=== PATIENT | male | born 1950 | race Caucasian/White ===

== ENCOUNTER 2016-09-19 16:41 | Inpatient (IN) | payer OTHER, MEDICARE ==
[2016-09-19] MEDS ORDERED: IPRATROPIUM/ALBUTEROL (0.5MG/3MG) NEB INH ONE (18:26)
--- NOTE | 2016-09-19 18:31 | Emergency Department Record ---
History of Present Illness - General Chief complaint: Nausea, Vomiting, Diarrhea Stated complaint: NOT FEELING WELL,NAUSEA,WEAK Time Seen by Provider: 09/19/16 18:24 Source: Patient Mode of Arrival: Ambulatory Limitations: No limitations - History of Present Illness Initial comments: The patient is here due to not feeling well today. He developed nausea and vomiting about 5 hours ago and did vomit 2 times. He has had an increased cough recently with sputum. He denies any QUINTANILLA, neck pain, CP, AP or dysuria. The patient has a long hx of COPD and is on inhallers at home. MD complaint: Nausea, Vomiting Onset/Timin -: Hour(s) Description of Vomiting: Watery Associated Abdominal Pain: Yes Location: Diffuse Radiation: None Quality: Cramping Consistency: Constant Improves with: None Worsens with: Vomiting Associated Symptoms: Nausea/vomiting - Related Data Home Medications Medication Instructions Recorded Confirmed Last Taken Albuterol Sulfate [Proair 90 mcg IH ASDIR 01/17/15 09/19/16 08/06/15 Respiclick] Aspirin [Aspirin EC] 81 mg PO DAILY 01/17/15 09/19/16 08/06/15 Ipratropium/Albuterol [Duoneb] 3 ml IH DAILY 09/19/16 09/19/16 Unknown Allergies Allergy/AdvReac Type Severity Reaction Status Date / Time No Known Drug Allergies Allergy Unverified 09/05/16 14:37 Travel Screening - Travel/Exposure Within Last 30 Days Have you traveled within the last 30 days?: No Review of Systems Constitutional: Reports: Chills, Fever, Malaise Eyes: Denies: Eye discharge ENT: Reports: Congestion Respiratory: Reports: Cough. Denies: Dyspnea Cardiovascular: Denies: Arrhythmia, Chest pain Endocrine: Reports: Fatigue Gastrointestinal: Reports: Nausea, Vomiting. Denies: Abdominal pain Genitourinary: Denies: Dysuria Musculoskeletal: Denies: Arthralgia Past Medical History - SOCIAL HISTORY Smoking Status: Former smoker Alcohol Use: None Drug Use Detail:: Marijuana - RESPIRATORY Hx Respiratory Disorders: Yes Hx COPD: Yes Comment:: emphysema; home O2 @2L n/c - CARDIOVASCULAR Hx Cardio Disorders: Yes Hx Cardiac Cath: Yes Hx Hypertension: Yes - NEURO Hx Neuro Disorders: No - GI Hx GI Disorders: No - Hx Genitourinary Disorders: Yes Hx Bladder Problem: Yes - ENDOCRINE Hx Endocrine Disorders: No - MUSCULOSKELETAL Hx Musculoskeletal Disorders: Yes - PSYCH Hx Psych Problems: No - HEMATOLOGY/ONCOLOGY Hx Hematology/Oncology Disorders: No Family Medical History Any Significant Family History?: Yes Hx Diabetes: Mother Hx Heart Disease: Mother Physical Exam - General General Appearance: Alert, Oriented x3, Cooperative, No acute distress - Head Head exam: Atraumatic, Normocephalic, Normal inspection - Eye Eye exam: Normal appearance, PERRL, EOMI - ENT ENT exam: Normal exam, Mucous membranes moist, Normal external ear exam, Normal orophraynx Throat exam: Normal inspection. negative: Tonsillar erythema, Tonsillar exudate - Neck Neck exam: Normal inspection, Full ROM. negative: Tenderness - Respiratory Respiratory exam: Normal lung sounds bilaterally. negative: Respiratory distress - Cardiovascular Cardiovascular Exam: Regular rate, Normal rhythm, Normal heart sounds - GI/Abdominal GI/Abdominal exam: Soft, Normal bowel sounds. negative: Tenderness - Extremities Extremities exam: Normal inspection, Full ROM, Normal capillary refill. negative: Tenderness Course Vital Signs 09/19/16 18:18 Temperature 101.0 F H Pulse Rate 102 H Respiratory 22 Rate Blood Pressure 136/77 Pulse Ox 96 - Reevaluation(s) Reevaluation #1: The patient is doing better. He is resting comfortably and on his way to xray. His care will be turned over to Dr. Wray at 19:00 due to shift change. 09/19/16 19:02 Medical Decision Making - Lab Data Result diagrams: 09/19/16 18:34 09/19/16 18:34 Disposition Forms: Patient Portal Access
[2016-09-19] MEDS ORDERED: METHYLPREDNISOLONE PF 125MG/VIAL IVP ONE (18:34)
[2016-09-19] MEDS ORDERED: ACETAMINOPHEN 325 MG TAB PO ONE (18:34)
[2016-09-19 19:04] LABS: HEMATOCRIT 39.1 % (42.0-52.0); HEMOGLOBIN 12.9 gm/dl (14.0-18.0); MEAN PLATELET VOLUME 10.9 fl (7.4-10.4); PLATELET COUNT 293 K/uL (130-400); RED BLOOD COUNT 4.16 M/uL (4.40-5.70); RED CELL DISTRIBUTION WIDTH 13.3 % (11.5-14.5); WHITE BLOOD COUNT W/O DIFF 19.1 K/uL (4.2-12.2)
[2016-09-19 19:13] LABS: PLATELET ESTIMATE NORMAL (NORMAL)
[2016-09-19 19:16] LABS: ANION GAP 9.1 (7-16); BLOOD UREA NITROGEN 15 mg/dL (9-20); CARBON DIOXIDE 27.9 mmol/L (22-30); CREATININE 0.7 mg/dL (0.66-1.25); EST GLOMERULAR FILTRATION RATE > 60 ml/min; GLUCOSE,RANDOM 92 mg/dL (70-110)
[2016-09-19] MEDS ORDERED: CEFTRIAXONE SODIUM 1 GM in 0.9 % SODIUM CHLORIDE 100ML 100 ML IVPB ONE (20:47)
[2016-09-19] MEDS ORDERED: AZITHROMYCIN 500 MG TABLET PO ONE (20:47)
[2016-09-19] MEDS ORDERED: HYDROMORPHONE HCL 1 MG/ML CPJ IVP ONE (21:22)
--- NOTE | 2016-09-19 21:33 | Emergency Department Record ---
History of Present Illness - General Chief complaint: Nausea, Vomiting, Diarrhea Stated complaint: NOT FEELING WELL,NAUSEA,WEAK Time Seen by Provider: 09/19/16 18:24 Source: Patient Mode of Arrival: Ambulatory Limitations: No limitations - History of Present Illness MD complaint: Nausea, Vomiting Onset/Timin -: Hour(s) Description of Vomiting: Watery Associated Abdominal Pain: Yes Location: Diffuse Radiation: None Quality: Cramping Consistency: Constant Improves with: None Worsens with: Vomiting Associated Symptoms: Nausea/vomiting - Related Data Home Medications Medication Instructions Recorded Confirmed Last Taken Albuterol Sulfate [Proair 90 mcg IH ASDIR 01/17/15 09/19/16 08/06/15 Respiclick] Aspirin [Aspirin EC] 81 mg PO DAILY 01/17/15 09/19/16 08/06/15 Ipratropium/Albuterol [Duoneb] 3 ml IH DAILY 09/19/16 09/19/16 Unknown Allergies Allergy/AdvReac Type Severity Reaction Status Date / Time No Known Drug Allergies Allergy Unverified 09/05/16 14:37 Travel Screening - Travel/Exposure Within Last 30 Days Have you traveled within the last 30 days?: No Review of Systems Constitutional: Reports: Chills, Fever, Malaise Eyes: Denies: Eye discharge ENT: Reports: Congestion Respiratory: Reports: Cough. Denies: Dyspnea Cardiovascular: Denies: Arrhythmia, Chest pain Endocrine: Reports: Fatigue Gastrointestinal: Reports: Nausea, Vomiting. Denies: Abdominal pain Genitourinary: Denies: Dysuria Musculoskeletal: Denies: Arthralgia Past Medical History - SOCIAL HISTORY Smoking Status: Former smoker Alcohol Use: None Drug Use Detail:: Marijuana - RESPIRATORY Hx Respiratory Disorders: Yes Hx COPD: Yes Comment:: emphysema; home O2 @2L n/c - CARDIOVASCULAR Hx Cardio Disorders: Yes Hx Cardiac Cath: Yes Hx Hypertension: Yes - NEURO Hx Neuro Disorders: No - GI Hx GI Disorders: No - Hx Genitourinary Disorders: Yes Hx Bladder Problem: Yes - ENDOCRINE Hx Endocrine Disorders: No - MUSCULOSKELETAL Hx Musculoskeletal Disorders: Yes - PSYCH Hx Psych Problems: No - HEMATOLOGY/ONCOLOGY Hx Hematology/Oncology Disorders: No Family Medical History Any Significant Family History?: Yes Hx Diabetes: Mother Hx Heart Disease: Mother Physical Exam - General Limitations: No limitations Course Vital Signs 09/19/16 09/19/16 09/19/16 18:18 18:39 20:18 Temperature 101.0 F H 99.0 F Pulse Rate 102 H 104 H Pulse Rate [ 107 H Pulse Ox Probe] Respiratory 22 18 22 Rate Blood Pressure 136/77 Blood Pressure 133/80 [Right Arm] Pulse Ox 96 96 97 Medical Decision Making - Lab Data Result diagrams: 09/19/16 18:30 09/19/16 18:30 Lab Results 09/19/16 09/19/16 Range/Units 18:30 18:30 WBC 19.1 H (4.2-12.2) K/uL RBC 4.16 L (4.40-5.70) M/uL Hgb 12.9 L (14.0-18.0) gm/dl Hct 39.1 L (42.0-52.0) % MCV 94.0 (81-97) fl MCH 31.0 (27-33) pg MCHC 33.0 (32-36) g/dl RDW 13.3 (11.5-14.5) % Plt Count 293 (130-400) K/uL MPV 10.9 H (7.4-10.4) fl Neutrophils % 87.0 H (47-80) % Band Neutrophils % 4.0 (0-5) % Eosinophils % Not Reportable Basophils % Not Reportable Lymphocytes 4.0 L (16-45) % Monocytes 5.0 (0-9) % Platelet Estimate Normal (NORMAL) RBC Morphology Normal Sodium 134 L (136-145) mmol/L Potassium 3.6 (3.5-5.1) mmol/L Chloride 97 L (98-107) mmol/L Carbon Dioxide 27.9 (22-30) mmol/L Anion Gap 9.1 (7-16) BUN 15 (9-20) mg/dL Creatinine 0.7 (0.66-1.25) mg/dL Estimated GFR > 60 ml/min Random Glucose 92 (70-110) mg/dL Calcium 8.8 (8.5-10.1) mg/dL Disposition Disposition: Admit Clinical Impression: Pneumonia Qualifiers: Pneumonia type: due to unspecified organism Laterality: right Lung location: middle lobe of lung Qualified Code(s): J18.1 - Lobar pneumonia, unspecified organism COPD (chronic obstructive pulmonary disease) Qualifiers: COPD type: COPD with acute lower respiratory infection Qualified Code(s): J44.0 - Chronic obstructive pulmonary disease with acute lower respiratory infection Vomiting Qualifiers: Vomiting type: unspecified Vomiting Intractability: non-intractable Nausea presence: with nausea Qualified Code(s): R11.2 - Nausea with vomiting, unspecified Disposition: Still a Patient at [facility] Decision to Admit: Admit from ER Decision to Admit Date: 09/19/16 Decision to Admit Time: 21:25 Forms: Patient Portal Access
[2016-09-19] MEDS ORDERED: LOSARTAN POTASSIUM 100 MG TABLET PO SCH (22:47)
[2016-09-19] MEDS ORDERED: PROMETHAZINE HCL 25 MG/ML VIAL IVP PRN (22:47)
[2016-09-19] MEDS ORDERED: ALBUTEROL SULFATE (0.083%) 2.5 MG/3 ML NEB INH PRN (22:47)
[2016-09-19] MEDS ORDERED: ACETAMINOPHEN 500 MG TABLET PO PRN (22:47)
[2016-09-19] MEDS ORDERED: ATORVASTATIN 20 MG TABLET PO SCH (22:47)
[2016-09-19] MEDS ORDERED: RANITIDINE HCL 150 MG TABLET PO PRN (22:47)
[2016-09-19] MEDS ORDERED: BUSPIRONE 5 MG TABLET PO SCH (22:47)
[2016-09-19] MEDS ORDERED: PNEUM 23-VAL ADULT IM ONE (23:02)
[2016-09-19] MEDS ORDERED: FLU VAC QS 2016-17 (INPT, 3YR+) 60MCG/0.5ML IM ONE (23:02)
[2016-09-19] MEDS: IPRATROPIUM/ALBUTEROL (0.5MG/3MG) NEB INH PRN (23:08)
[2016-09-19] MEDS: TRAZODONE 50 MG TABLET PO SCH (23:13)
[2016-09-19] MEDS: HYDROCODONE/APAP 7.5/325MG TABLET PO PRN (23:13)
[2016-09-20] MEDS: IPRATROPIUM/ALBUTEROL (0.5MG/3MG) NEB INH PRN (06:05)
[2016-09-20] MEDS: PANTOPRAZOLE SODIUM 40 MG TABLET PO SCH (06:37)
[2016-09-20] MEDS: HYDROCODONE/APAP 7.5/325MG TABLET PO PRN ×3 (06:39→21:24)
[2016-09-20 07:02] LABS: HEMATOCRIT 39.6 % (42.0-52.0); MEAN CELL VOLUME 93.6 fl (81-97); MEAN CORPUSCULAR HEMOGLOBIN 30.7 pg (27-33); MEAN CORPUSCULAR HGB CONC 32.8 g/dl (32-36); PLATELET COUNT 300 K/uL (130-400); RED BLOOD COUNT 4.23 M/uL (4.40-5.70); RED CELL DISTRIBUTION WIDTH 13.7 % (11.5-14.5)
[2016-09-20] MEDS: IPRATROPIUM/ALBUTEROL (0.5MG/3MG) NEB INH SCH ×4 (09:55→21:53)
[2016-09-20] MEDS ORDERED: BUDESONIDE 0.5 MG/2 ML INH SCH (10:00)
[2016-09-20] MEDS ORDERED: AZITHROMYCIN 500 MG TABLET PO SCH (10:00)
[2016-09-20] MEDS ORDERED: TIOTROPIUM BROMIDE 5 CAPSULES INH SCH (10:00)
--- NOTE | 2016-09-20 10:18 | History & Physical ---
History of Present Illness - Date of Service Date of Service for History & Physical: 09/20/16 - History of Present Illness Admitting Diagnosis: rml pneumonia, copd, vomiting History of Present Illness: 66yo male with CC of n/v, cough and not feeling well. He has history of severe COPD emphysema with home O2 use at 2L, hypertension, anxiety, osteoporosis, pre- diabetes. Patient states over the past week he had been having some increasing shortness of breath from baseline. [place] like his chest was getting tighter and having a harder time getting a breath in. He was not having increased cough or sputum production. 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 He says his symptoms continued to progress over the week and then yesterday had nausea with 3 episodes of emesis so decided to come to the ED. While in the ED, patient was febrile with temp of 101, HR of 102, and O2 sat of 96% on 2L. His WBC count was elevated at 19.1 and CXR showed new RML infiltrate along with chronic emphysematous changes. CMP showed slightly low sodium at 134 and Cl of 97. Blood cultures were obtained and he was started on azithromycin and rocephin for suspected CAP. 09/20/16- Patient states he is feeling better compared to yesterday. He says he is not feeling as short of breath but is not back to his baseline. He says his nausea has completely resolved and thinks he just ate something that didn't agree with him, because he was not having any problems prior to yesterday. He never had abdominal pain and no changes in his stool. He does continue to report some pain in the right middle chest where the infiltrate is. He denies fever, chills, weakness or fatigue. PCP: [facility]. Travel Screening - Travel/Exposure Within Last 30 Days Have you traveled within the last 30 days?: No Review of Systems Constitutional: Reports: Chills, Fever, Malaise Eyes: Denies: Eye discharge ENT: Reports: Congestion Respiratory: Reports: Cough. Denies: Dyspnea Cardiovascular: Denies: Arrhythmia, Chest pain Endocrine: Reports: Fatigue Gastrointestinal: Reports: Nausea, Vomiting. Denies: Abdominal pain Genitourinary: Denies: Dysuria Musculoskeletal: Denies: Arthralgia Past Medical History - SOCIAL HISTORY Smoking Status: Former smoker Alcohol Use: None Drug Use: Occassional Drug Use Detail:: Marijuana - RESPIRATORY Hx Respiratory Disorders: Yes Hx COPD: Yes Comment:: emphysema; home O2 @2L n/c - CARDIOVASCULAR Hx Cardio Disorders: Yes Hx Cardiac Cath: Yes Hx Hypertension: Yes - NEURO Hx Neuro Disorders: No - GI Hx GI Disorders: No - Hx Genitourinary Disorders: Yes Hx Bladder Problem: Yes - ENDOCRINE Hx Endocrine Disorders: No - MUSCULOSKELETAL Hx Musculoskeletal Disorders: Yes - PSYCH Hx Psych Problems: No - HEMATOLOGY/ONCOLOGY Hx Hematology/Oncology Disorders: No Family Medical History Any Significant Family History?: Yes Hx Diabetes: Mother Hx Heart Disease: Mother H&P Meds/Allergies - Allergies Allergies: Allergies Allergy/AdvReac Type Severity Reaction Status Date / Time No Known Drug Allergies Allergy Unverified 09/05/16 14:37 - Home Medications Home Medications Medication Instructions Recorded Confirmed Last Taken Albuterol Sulfate [Proair 90 mcg IH ASDIR 01/17/15 09/19/16 08/06/15 Respiclick] Aspirin [Aspirin EC] 81 mg PO DAILY 01/17/15 09/19/16 08/06/15 Hydrocodone/Acetaminophen 1 tab PO Q6HR PRN 09/19/16 09/19/16 Unknown [Hydrocodone/Acetaminophen 7.5mg/325mg] Ipratropium/Albuterol [Duoneb] 3 ml IH RESP.Q4H.IL 09/19/16 09/20/16 Unknown Trazodone HCl [Desyrel] 50 mg PO QHS 09/19/16 09/19/16 Unknown - Active Medications Active Medications: Current Medications Acetaminophen (Tylenol 500mg Tab) 1,000 mg PO Q6H PRN PRN Reason: PAIN/TEMP Hydrocodone Bitart/Acetaminophen ([place] 7.5mg/325mg) 1 each PO Q6H PRN PRN Reason: Pain - Moderate (5-7) Last Admin: 09/20/16 06:39 Dose: 1 each Albuterol Sulfate () 2.5 mg INH RESP.Q4H PRN PRN Reason: DIFFICULTY IN BREATHING Albuterol/Ipratropium (Duoneb) 3 ml INH RESP.Q4H.[facility] Last Admin: 09/20/16 09:55 Dose: 3 ml Aspirin (Ecotrin (Ec)) 81 mg PO DAILY [facility] Atorvastatin Calcium (Lipitor) 40 mg PO QHS [facility] Azithromycin (Zithromax) 500 mg PO DAILY [facility] Buspirone HCl (Buspar) 15 mg PO BID [facility] Hydrochlorothiazide (Hctz 12.5mg) 12.5 mg PO DAILY [facility] Ceftriaxone Sodium 1 gm/ (Sodium Chloride) 100 mls @ 100 mls/hr IVPB Q24H [facility] Stop: 09/25/16 22:01 Levofloxacin/Dextrose (Levaquin 750mg Ivpb) 750 mg in 150 mls @ 125 mls/hr IVPB Q24H [facility] Stop: 09/25/16 09:31 Losartan Potassium (Losartan Potassium) 100 mg PO DAILY [facility] Methylprednisolone Sodium Succinate (Solu-Medrol) 60 mg IVP DAILY [facility] Pantoprazole Sodium (Protonix) 80 mg PO DAILYAC [facility] Last Admin: 09/20/16 06:37 Dose: 80 mg Promethazine HCl (Phenergan) 12.5 mg IVP Q6H PRN PRN Reason: NAUSEA Ranitidine HCl (Zantac) 150 mg PO BIDAC PRN PRN Reason: Abdominal Pain Trazodone HCl (Desyrel) 50 mg PO QHS [facility] Last Admin: 09/19/16 23:13 Dose: 50 mg Physical Exam - Vital Signs Vital Signs: Vital Signs - Last 24 Hrs Temp Pulse Resp BP Pulse Ox 09/20/16 09:58 98.0 F 88 18 118/67 97 09/20/16 06:00 97.4 F L 85 20 115/68 95 09/19/16 22:00 98.1 F 96 H 20 146/76 96 - General General Appearance: Alert, Oriented x3, Cooperative, No acute distress Limitations: No limitations - Head Head exam: Atraumatic, Normocephalic, Normal inspection - Eye Eye exam: Normal appearance, PERRL, EOMI - ENT ENT exam: Normal exam, Mucous membranes moist, Normal external ear exam, Normal orophraynx Throat exam: Normal inspection. negative: Tonsillar erythema, Tonsillar exudate - Neck Neck exam: Normal inspection, Full ROM. negative: Tenderness - Respiratory Respiratory exam: Decreased breath sounds (throughout ), Prolonged expiratory. negative: Accessory muscle use, Chest wall tenderness, Rales, Respiratory distress, Wheezes - Cardiovascular Cardiovascular Exam: Regular rate, Normal rhythm, Normal heart sounds - GI/Abdominal GI/Abdominal exam: Soft, Normal bowel sounds. negative: Tenderness - Extremities Extremities exam: Normal inspection, Full ROM, Normal capillary refill. negative: Tenderness - Neurological Neurological exam: Alert, Normal gait, Oriented X3, Reflexes normal Results - Labs Result Diagrams: 09/20/16 06:40 09/20/16 06:45 Labs Last 24 Hours: Laboratory Results - last 24 hr 09/20/16 06:40 WBC 26.0 H* RBC 4.23 L Hgb 13.0 L Hct 39.6 L MCV 93.6 MCH 30.7 MCHC 32.8 RDW 13.7 Plt Count 300 MPV 11.0 H Neutrophils % 95.0 H Eosinophils % Not Reportable Basophils % Not Reportable Lymphocytes 2.0 L Monocytes 3.0 - Imaging and Cardiology Chest x-ray Status: Report reviewed (right middle lobe infiltrate) VTE H&P Assessment - Risk for VTE Risk for VTE: Yes Risk Level: Moderate Risk Assessment Date: 09/20/16 Risk Assessment Time: 11:28 VTE Orders Placed or Will Be Placed: Yes Plan - Inpatient Certification Inpatient Certification: Admit to inpatient care: Based on my medical assessment, after consideration of patient's risk factors (age, co-morbidities and patient presenting symptoms and acuity), I expect that this patient will remain in the hospital greater than or equal to two midnights and that the services needed warrant inpatient care because: Patient Risk Factors: [age, severe COPD at baseline with exacerbation 2/2 pneumonia, nausea/vomiting] Estimated length of stay: [48-72H] The patient may reasonably be expected to be discharged or transferred to a hospital within 96 hours after admission to [facility]. Services needed: [IV antibiotics, IV steroids, respiratory therapy] Post hospital care (if known): [] I certify that my determination is in accordance with my understanding of Medicare requirements for reasonable and necessary inpatient services. 09/20/16 10:15 - Detailed Diagnosis and Plan (1) Pneumonia Current Visit: Yes Status: Acute Qualifiers: Pneumonia type: due to unspecified organism Laterality: right Lung location: middle lobe of lung Qualified Code(s): J18.1 - Lobar pneumonia, unspecified organism Base Code: J18.9 - PNEUMONIA, UNSPECIFIED ORGANISM Comment: 09/20/16- Improving clinically. CXR showed RML infiltrate. no MRSA or aspiration risks. WBC count did increase from 19.1 to 26, however, patient recieved solumedrol yesterday and bandemia present yesterday has resolved today. He has remained afebrile through the night. Blood cultures pending. -will transition abx to levaquin 750mg IV with h/o severe COPD/emphesema -continue vitals q8H -repeat labs qam (2) COPD (chronic obstructive pulmonary disease) Current Visit: Yes Status: Acute Qualifiers: COPD type: COPD with acute lower respiratory infection Qualified Code(s): J44.0 - Chronic obstructive pulmonary disease with acute lower respiratory infection Base Code: J44.9 - CHRONIC OBSTRUCTIVE PULMONARY DISEASE, UNSPECIFIED Comment : 09/20/16- Improving. Patient has severe emphysema with PFT's done through pulmonology office about a week ago. I do not have specific FEV1 value but pulmonology did state it was worse compared to 2016 testing. Patient did have some medication changes recently at his appointment. -will continue solumedrol 60mg IV daily for 5 days for burst treatment. will hold inhaled budesonide while receiving systemic steroids but will resume folllowing burst. -will continue duobneb scheduled q4H. Spiriva was discontinued as pulm felt he was not able to utilize correctly -continue supplemental oxygen at 2L at all times. Will have RT look in to smaller/portable oxygen compressor -continue vitals q8H -repeat labs qam (3) Vomiting Current Visit: Yes Status: Resolved Qualifiers: Vomiting type: unspecified Vomiting Intractability: non-intractable Nausea presence: with nausea Qualified Code(s): R11.2 - Nausea with vomiting, unspecified Base Code: R11.10 - VOMITING, UNSPECIFIED Comment: 09/20/16- Nausea and vomiting have resolved completely. He has not had any futher episodes and is tolerating full diet. His chloride improved to 98 today as did his sodium up to 136. He denies any abdominal pain or changes in bowel habits -will continue to monitor for recurrence (4) Full code status Current Visit: Yes Status: Acute Base Code: Z78.9 - OTHER SPECIFIED HEALTH STATUS Comment: 09/20/16- patient is full code (5) DVT prophylaxis Current Visit: Yes Status: Acute Base Code: [id number] - Comment: 09/20/16- Patient is moderate risk for DVT with age and restricted mobility. -lovenox 40mg SQ daily for prophylaxis
[2016-09-20 10:32] LABS: ALB/GLOB RATIO 1.3 (1.1-1.8); ALBUMIN 4.2 gm/dL (3.5-5.0); ALKALINE PHOSPHATASE 75 U/L (38-126); ALT/SGPT 28 U/L (21-72); ANION GAP 7.6 (7-16); AST/SGOT 29 U/L (17-59); BILIRUBIN,TOTAL 0.83 mg/dL (0.2-1.3); BLOOD UREA NITROGEN 19 mg/dL (9-20); CARBON DIOXIDE 30.4 mmol/L (22-30); CREATININE 0.7 mg/dL (0.66-1.25); EST GLOMERULAR FILTRATION RATE > 60 ml/min; GLUCOSE,RANDOM 146 mg/dL (70-110); TOTAL PROTEIN 7.4 gm/dL (6.3-8.2)
[2016-09-20] MEDS: LEVOFLOXACIN/D5W 750 MG/150 ML BAG IVPB SCH (10:46)
[2016-09-20] MEDS: ASPIRIN 81 MG TABEC PO SCH (10:47)
[2016-09-20] MEDS: HYDROCHLOROTHIAZIDE 12.5 MG CAPSULE PO SCH (10:47)
[2016-09-20] MEDS: BUSPIRONE 5 MG TABLET PO SCH ×2 (10:48→21:24)
[2016-09-20] MEDS: METHYLPREDNISOLONE PF 125MG/VIAL IVP SCH (10:48)
[2016-09-20] MEDS: LOSARTAN POTASSIUM 100 MG TABLET PO SCH (10:49)
[2016-09-20] MEDS: TRAZODONE 50 MG TABLET PO SCH (21:24)
[2016-09-20] MEDS: ATORVASTATIN 20 MG TABLET PO SCH (21:24)
[2016-09-20] MEDS ORDERED: CEFTRIAXONE SODIUM 1 GM in 0.9 % SODIUM CHLORIDE 100ML 100 ML IVPB SCH (22:00)
[2016-09-21] MEDS: HYDROCODONE/APAP 7.5/325MG TABLET PO PRN ×2 (04:00→12:50)
[2016-09-21] MEDS: IPRATROPIUM/ALBUTEROL (0.5MG/3MG) NEB INH SCH ×7 (04:04→22:04)
[2016-09-21] MEDS: PANTOPRAZOLE SODIUM 40 MG TABLET PO SCH (06:24)
[2016-09-21 08:24] LABS: HEMATOCRIT 38.3 % (42.0-52.0); HEMOGLOBIN 12.5 gm/dl (14.0-18.0); MEAN CELL VOLUME 94.8 fl (81-97); MEAN CORPUSCULAR HEMOGLOBIN 30.9 pg (27-33); MEAN CORPUSCULAR HGB CONC 32.6 g/dl (32-36); MEAN PLATELET VOLUME 10.6 fl (7.4-10.4); PLATELET COUNT 319 K/uL (130-400); RED BLOOD COUNT 4.04 M/uL (4.40-5.70); RED CELL DISTRIBUTION WIDTH 14.1 % (11.5-14.5)
[2016-09-21 08:34] LABS: WHITE BLOOD COUNT W/O DIFF 31.9 K/uL (4.2-12.2)
[2016-09-21 08:36] LABS: ALB/GLOB RATIO 1.5 (1.1-1.8); ALBUMIN 4.5 gm/dL (3.5-5.0); ALKALINE PHOSPHATASE 72 U/L (38-126); ALT/SGPT 25 U/L (21-72); ANION GAP 10.9 (7-16); AST/SGOT 22 U/L (17-59); BILIRUBIN,TOTAL 0.54 mg/dL (0.2-1.3); BLOOD UREA NITROGEN 22 mg/dL (9-20); CARBON DIOXIDE 27.1 mmol/L (22-30); CREATININE 0.6 mg/dL (0.66-1.25); EST GLOMERULAR FILTRATION RATE > 60 ml/min; GLUCOSE,RANDOM 120 mg/dL (70-110); TOTAL PROTEIN 7.5 gm/dL (6.3-8.2)
[2016-09-21] MEDS: LEVOFLOXACIN/D5W 750 MG/150 ML BAG IVPB SCH (09:31)
[2016-09-21] MEDS: METHYLPREDNISOLONE PF 125MG/VIAL IVP SCH (09:36)
[2016-09-21] MEDS: HYDROCHLOROTHIAZIDE 12.5 MG CAPSULE PO SCH (09:38)
[2016-09-21] MEDS: BUSPIRONE 5 MG TABLET PO SCH ×2 (09:39→22:22)
[2016-09-21] MEDS: ENOXAPARIN 40 MG/0.4 ML SYR SQ SCH (09:41)
[2016-09-21] MEDS: LOSARTAN POTASSIUM 100 MG TABLET PO SCH (09:41)
[2016-09-21] MEDS: ASPIRIN 81 MG TABEC PO SCH (09:53)
--- NOTE | 2016-09-21 10:12 | Physician Progress Note ---
Subjective - Date Date of Physician Progress Note: 09/21/16 - Subjective Subjective Comment: sitting up in bed comfortably. no concerns at this time. states he's feeling more energetic. walked the hallway last night with less difficulty in breathing. tolerating meals. normal GI/ function. nausea has resolved. no abd pain or change in bowel habits. Less sob. Coughing up yellow sputum following breathing tx with resp therapy. afebrile. denies diaphoresis, dysuria, hematuria, jaw or upper extremity pain. right sided achy cp follow deep breath. no radiation into jaw, extremity or back. states he had a relatively normal cardiac cath two years ago. Denies active cp at this time. non reproducible on palpation. Objective - Vital Signs Vital Signs: Vital Signs - Last 24 Hrs Temp Pulse Pulse Resp BP Pulse Ox 09/21/16 08:45 98.1 F 95 H 18 127/78 99 09/21/16 08:41 88 16 95 09/21/16 04:04 93 H 20 100 09/20/16 21:53 93 H 18 100 09/20/16 21:00 16 09/20/16 20:00 98.1 F 95 H 20 132/62 96 09/20/16 19:00 98.2 F 101 H 18 126/72 98 09/20/16 18:34 100 09/20/16 18:31 72 16 100 09/20/16 14:08 82 20 97 09/20/16 11:39 98.0 F 88 18 98/62 95 - General General Appearance: Alert, Oriented x3, Cooperative, No acute distress Limitations: No limitations - Head Head exam: Atraumatic, Normocephalic, Normal inspection - Eye Eye exam: Normal appearance, PERRL, EOMI - ENT ENT exam: Normal exam, Mucous membranes moist, Normal external ear exam, Normal orophraynx Throat exam: Normal inspection. negative: Tonsillar erythema, Tonsillar exudate - Neck Neck exam: Normal inspection, Full ROM. negative: Tenderness - Respiratory Respiratory exam: Decreased breath sounds (throughout ), Prolonged expiratory. negative: Accessory muscle use, Chest wall tenderness, Rales, Respiratory distress, Wheezes - Cardiovascular Cardiovascular Exam: Regular rate, Normal rhythm, Normal heart sounds - GI/Abdominal GI/Abdominal exam: Soft, Normal bowel sounds. negative: Tenderness - Extremities Extremities exam: Normal inspection, Full ROM, Normal capillary refill. negative: Tenderness - Neurological Neurological exam: Alert, Normal gait, Oriented X3, Reflexes normal Assessment and Plan - Assessment and Plan (1) Pneumonia Current Visit: Yes Status: Acute Qualifiers: Pneumonia type: due to unspecified organism Laterality: right Lung location: middle lobe of lung Qualified Code(s): J18.1 - Lobar pneumonia, unspecified organism Base Code: J18.9 - PNEUMONIA, UNSPECIFIED ORGANISM Comment: 09/21/16- symptomatically improving. CXR showed RML infiltrate. no MRSA or aspiration risks. WBC count did increase from 26 to 31, however, patient is receiving solumedrol and bandemia present has resolved today. He has remained afebrile in the past 24-48 hours. Blood cultures are pending. - continue levaquin 750mg IV with h/o severe COPD/emphesema - continue vitals q8H - repeat labs qam - will obtain baseline EKG and cardiac enzymes - patient denies CP at this time, however experieces dull right sided cp w/ deep breath. this is not reproducible with palpation on exam (2) COPD (chronic obstructive pulmonary disease) Current Visit: Yes Status: Acute Qualifiers: COPD type: COPD with acute lower respiratory infection Qualified Code(s): J44.0 - Chronic obstructive pulmonary disease with acute lower respiratory infection Base Code: J44.9 - CHRONIC OBSTRUCTIVE PULMONARY DISEASE, UNSPECIFIED Comment : 09/21/16- Improving symptomatically. - Patient has severe emphysema with PFT's done through pulmonology office about a week ago. I do not have specific FEV1 value but pulmonology did state it was worse compared to 2016 testing. Patient did have some medication changes recently at his appointment. -will continue solumedrol 60mg IV daily for 5 days for burst treatment. will hold inhaled budesonide while receiving systemic steroids but will resume folllowing burst. -will continue duobneb scheduled q4H. Spiriva was discontinued as pulm felt he was not able to utilize correctly -continue supplemental oxygen at 2L at all times. Will have RT look in to smaller/portable oxygen compressor -continue vitals q8H -repeat labs qam (3) DVT prophylaxis Current Visit: Yes Status: Acute Base Code: [id number] - Comment: 09/21/16- Patient is moderate risk for DVT with age and restricted mobility. -lovenox 40mg SQ daily for prophylaxis (4) Full code status Current Visit: Yes Status: Acute Base Code: Z78.9 - OTHER SPECIFIED HEALTH STATUS Comment: 09/21/16- patient is full code Results - Labs Result Diagrams: 09/21/16 08:09 09/21/16 08:09 Labs Last 24 Hours: Laboratory Results - last 24 hr 09/20/16 09/21/16 09/21/16 06:45 08:09 08:09 WBC 31.9 H* RBC 4.04 L Hgb 12.5 L Hct 38.3 L MCV 94.8 MCH 30.9 MCHC 32.6 RDW 14.1 Plt Count 319 MPV 10.6 H Neutrophils % 90.0 H Eosinophils % Not Reportable Basophils % Not Reportable Lymphocytes 4.0 L Monocytes 6.0 Sodium 136 137 Potassium 3.8 3.8 Chloride 98 99 Carbon Dioxide 30.4 H 27.1 Anion Gap 7.6 10.9 BUN 19 22 H Creatinine 0.7 0.6 L Estimated GFR > 60 > 60 Random Glucose 146 H 120 H Calcium 9.1 9.0 Total Bilirubin 0.83 0.54 AST 29 22 ALT 28 25 Alkaline Phosphatase 75 72 Total Protein 7.4 7.5 Albumin 4.2 4.5 Globulin 3.2 3.0 Albumin/Globulin Ratio 1.3 1.5 DVT/PE Assessment - Risk for VTE Risk for VTE: No Risk Level: Moderate Risk Assessment Date: 09/20/16 Risk Assessment Time: 11:28 VTE Orders Placed or Will Be Placed: Yes - Active Medicaitons Current Medications: Current Medications Acetaminophen (Tylenol 500mg Tab) 1,000 mg PO Q6H PRN PRN Reason: PAIN/TEMP Hydrocodone Bitart/Acetaminophen ([place] 7.5mg/325mg) 1 each PO Q6H PRN PRN Reason: Pain - Moderate (5-7) Last Admin: 09/21/16 04:00 Dose: 1 each Albuterol Sulfate () 2.5 mg INH RESP.Q4H PRN PRN Reason: DIFFICULTY IN BREATHING Albuterol/Ipratropium (Duoneb) 3 ml INH RESP.Q4H.[facility] Last Admin: 09/21/16 08:33 Dose: 3 ml Aspirin (Ecotrin (Ec)) 81 mg PO DAILY [facility] Last Admin: 09/21/16 09:53 Dose: 81 mg Atorvastatin Calcium (Lipitor) 40 mg PO QHS [facility] Last Admin: 09/20/16 21:24 Dose: 40 mg Buspirone HCl (Buspar) 15 mg PO BID [facility] Last Admin: 09/21/16 09:39 Dose: 15 mg Enoxaparin Sodium (Lovenox) 40 mg SQ DAILY [facility] Last Admin: 09/21/16 09:41 Dose: 40 mg Hydrochlorothiazide (Hctz 12.5mg) 12.5 mg PO DAILY [facility] Last Admin: 09/21/16 09:38 Dose: 12.5 mg Levofloxacin/Dextrose (Levaquin 750mg Ivpb) 750 mg in 150 mls @ 125 mls/hr IVPB Q24H [facility] Stop: 09/25/16 09:31 Last Admin: 09/21/16 09:31 Dose: 125 mls/hr Losartan Potassium (Losartan Potassium) 100 mg PO DAILY [facility] Last Admin: 09/21/16 09:41 Dose: 100 mg Methylprednisolone Sodium Succinate (Solu-Medrol) 60 mg IVP DAILY [facility] Last Admin: 09/21/16 09:36 Dose: 60 mg Pantoprazole Sodium (Protonix) 80 mg PO DAILYAC [facility] Last Admin: 09/21/16 06:24 Dose: 80 mg Promethazine HCl (Phenergan) 12.5 mg IVP Q6H PRN PRN Reason: NAUSEA Ranitidine HCl (Zantac) 150 mg PO BIDAC PRN PRN Reason: Abdominal Pain Trazodone HCl (Desyrel) 50 mg PO QHS [facility] Last Admin: 09/20/16 21:24 Dose: 50 mg AMI Plan - Labs Result Diagrams: 09/21/16 08:09 09/21/16 08:09
[2016-09-21] MEDS: GUAIFENESIN 1,200 MG TABLET PO SCH ×2 (15:40→22:23)
[2016-09-21] MEDS ORDERED: ASPIRIN 325 MG TABLET PO ONE (17:45)
[2016-09-21] MEDS: HYDROXYZINE PAMOATE 25 MG CAPSULE PO PRN (17:56)
[2016-09-21] MEDS: TRAZODONE 50 MG TABLET PO SCH (22:21)
[2016-09-21] MEDS: ATORVASTATIN 20 MG TABLET PO SCH (22:22)
[2016-09-22] MEDS: HYDROCODONE/APAP 7.5/325MG TABLET PO PRN ×4 (01:40→22:20)
[2016-09-22 02:49] LABS: EOS % 0.4 % (0-6); HEMATOCRIT 36.4 % (42.0-52.0); LYMPH % 5.8 % (16-45); MEAN CORPUSCULAR HEMOGLOBIN 31.3 pg (27-33); MEAN PLATELET VOLUME 11.8 fl (7.4-10.4); MONO % 8.6 % (0-9); PLATELET COUNT 262 K/uL (130-400); RED BLOOD COUNT 3.83 M/uL (4.40-5.70); RED CELL DISTRIBUTION WIDTH 14.1 % (11.5-14.5)
[2016-09-22 02:56] LABS: WHITE BLOOD COUNT W/O DIFF 20.9 K/uL (4.2-12.2)
[2016-09-22 03:06] LABS: ANION GAP 8.5 (7-16); BLOOD UREA NITROGEN 21 mg/dL (9-20); CARBON DIOXIDE 26.5 mmol/L (22-30); CREATININE 0.7 mg/dL (0.66-1.25); EST GLOMERULAR FILTRATION RATE > 60 ml/min; GLUCOSE,RANDOM 115 mg/dL (70-110)
[2016-09-22] MEDS: PANTOPRAZOLE SODIUM 40 MG TABLET PO SCH (07:04)
[2016-09-22] MEDS: IPRATROPIUM/ALBUTEROL (0.5MG/3MG) NEB INH SCH ×5 (07:56→21:58)
[2016-09-22] MEDS: LEVOFLOXACIN/D5W 750 MG/150 ML BAG IVPB SCH (09:50)
[2016-09-22] MEDS: ENOXAPARIN 40 MG/0.4 ML SYR SQ SCH (09:51)
[2016-09-22] MEDS: BUSPIRONE 5 MG TABLET PO SCH ×2 (09:52→22:22)
[2016-09-22] MEDS: GUAIFENESIN 1,200 MG TABLET PO SCH ×2 (09:52→22:22)
[2016-09-22] MEDS: LOSARTAN POTASSIUM 100 MG TABLET PO SCH (09:52)
[2016-09-22] MEDS: ASPIRIN 81 MG TABEC PO SCH (09:52)
[2016-09-22] MEDS: METHYLPREDNISOLONE PF 125MG/VIAL IVP SCH (09:53)
[2016-09-22] MEDS: HYDROCHLOROTHIAZIDE 12.5 MG CAPSULE PO SCH (09:53)
--- NOTE | 2016-09-22 10:42 | Physician Progress Note ---
Subjective - Date Date of Physician Progress Note: 09/22/16 - Subjective Subjective Comment: sitting up in bed comfortably with at bedside. states he continues to slowly feel better. denies sob, cp, fever, chills, diaphoresis, abd pain. tolerating meals. normal gi/gu function. Denies any additional concerns. Wheezing this morning that resolved with breathing treatment. Objective - Vital Signs Vital Signs: Vital Signs - Last 24 Hrs Temp Pulse Pulse Resp BP BP Pulse Ox 09/22/16 09:00 97.4 F L 90 18 114/71 98 09/22/16 08:03 88 18 09/22/16 08:01 92 H 18 09/22/16 01:00 98.0 F 85 16 119/68 98 09/21/16 22:04 89 16 100 09/21/16 21:00 18 09/21/16 19:44 93 H 18 100 09/21/16 17:40 98.0 F 99 H 18 153/87 150/76 97 - General General Appearance: Alert, Oriented x3, Cooperative, No acute distress Limitations: No limitations - Head Head exam: Atraumatic, Normocephalic, Normal inspection - Eye Eye exam: Normal appearance, PERRL, EOMI - ENT ENT exam: Normal exam, Mucous membranes moist, Normal external ear exam, Normal orophraynx Throat exam: Normal inspection. negative: Tonsillar erythema, Tonsillar exudate - Neck Neck exam: Normal inspection, Full ROM. negative: Tenderness - Respiratory Respiratory exam: Decreased breath sounds (throughout ), Prolonged expiratory. negative: Accessory muscle use, Chest wall tenderness, Rales, Respiratory distress, Wheezes - Cardiovascular Cardiovascular Exam: Regular rate, Normal rhythm, Normal heart sounds - GI/Abdominal GI/Abdominal exam: Soft, Normal bowel sounds. negative: Tenderness - Extremities Extremities exam: Normal inspection, Full ROM, Normal capillary refill. negative: Tenderness - Neurological Neurological exam: Alert, Normal gait, Oriented X3, Reflexes normal Assessment and Plan - Assessment and Plan (1) Pneumonia Current Visit: Yes Status: Acute Qualifiers: Pneumonia type: due to unspecified organism Laterality: right Lung location: middle lobe of lung Qualified Code(s): J18.1 - Lobar pneumonia, unspecified organism Base Code: J18.9 - PNEUMONIA, UNSPECIFIED ORGANISM Comment: 09/22/16- improving clinically. CXR showed RML infiltrate. no MRSA or aspiration risks. WBC count decreased from >30 to 20. He has remained afebrile. Blood cultures are pending. - continue levaquin 750mg IV with h/o severe COPD/emphesema - continue vitals q8H - repeat labs qam - repeat CXR this morning - baseline EKG and cardiac enzymes negative (2) COPD (chronic obstructive pulmonary disease) Current Visit: Yes Status: Acute Qualifiers: COPD type: COPD with acute lower respiratory infection Qualified Code(s): J44.0 - Chronic obstructive pulmonary disease with acute lower respiratory infection Base Code: J44.9 - CHRONIC OBSTRUCTIVE PULMONARY DISEASE, UNSPECIFIED Comment : 09/22/16- Improving clinically. - Patient has severe emphysema with PFT's done through pulmonology office about a week ago. I do not have specific FEV1 value but pulmonology did state it was worse compared to 2016 testing. Patient did have some medication changes recently at his appointment. -will continue solumedrol 60mg IV daily for 5 days for burst treatment. will hold inhaled budesonide while receiving systemic steroids but will resume folllowing burst. -will continue duobneb scheduled q4H [place]. Spiriva was discontinued as pulm felt he was not able to utilize correctly -continue supplemental oxygen at 2L at all times. Will have RT look in to smaller/portable oxygen compressor -continue vitals q8H -repeat labs qam- WBC trending down. (3) DVT prophylaxis Current Visit: Yes Status: Acute Base Code: [id number] - Comment: 09/22/16- Patient is moderate risk for DVT with age and restricted mobility. -lovenox 40mg SQ daily for prophylaxis (4) Full code status Current Visit: Yes Status: Acute Base Code: Z78.9 - OTHER SPECIFIED HEALTH STATUS Comment: 09/22/16- patient is full code Results - Labs Result Diagrams: 09/22/16 02:10 09/22/16 02:10 Labs Last 24 Hours: Laboratory Results - last 24 hr 09/21/16 09/22/16 09/22/16 18:00 02:10 02:10 WBC 20.9 H* RBC 3.83 L Hgb 12.0 L Hct 36.4 L MCV 95.0 MCH 31.3 MCHC 33.0 RDW 14.1 Plt Count 262 MPV 11.8 H Neutrophils % 89.0 H Band Neutrophils % 0.0 Lymphocytes % 5.8 L Monocytes % 8.6 Eosinophils % 0.4 Basophils % 0.0 Lymphocytes 4.0 L Monocytes 7.0 Basophils 0.0 Eosinophil Count 0.0 Sodium 137 Potassium 4.4 Chloride 102 Carbon Dioxide 26.5 Anion Gap 8.5 BUN 21 H Creatinine 0.7 Estimated GFR > 60 Random Glucose 115 H Calcium 9.1 Troponin I < 0.012 09/22/16 02:10 WBC RBC Hgb Hct MCV MCH MCHC RDW Plt Count MPV Neutrophils % Band Neutrophils % Lymphocytes % Monocytes % Eosinophils % Basophils % Lymphocytes Monocytes Basophils Eosinophil Count Sodium Potassium Chloride Carbon Dioxide Anion Gap BUN Creatinine Estimated GFR Random Glucose Calcium Troponin I < 0.012 DVT/PE Assessment - Risk for VTE Risk for VTE: No Risk Level: Moderate Risk Assessment Date: 09/20/16 Risk Assessment Time: 11:28 VTE Orders Placed or Will Be Placed: Yes - Active Medicaitons Current Medications: Current Medications Acetaminophen (Tylenol 500mg Tab) 1,000 mg PO Q6H PRN PRN Reason: PAIN/TEMP Hydrocodone Bitart/Acetaminophen ([place] 7.5mg/325mg) 1 each PO Q6H PRN PRN Reason: Pain - Moderate (5-7) Last Admin: 09/22/16 08:02 Dose: 1 each Albuterol Sulfate () 2.5 mg INH RESP.Q4H PRN PRN Reason: DIFFICULTY IN BREATHING Albuterol/Ipratropium (Duoneb) 3 ml INH RESP.Q4H.[facility] Last Admin: 09/22/16 07:56 Dose: 3 ml Aspirin (Ecotrin (Ec)) 81 mg PO DAILY [facility] Last Admin: 09/22/16 09:52 Dose: 81 mg Atorvastatin Calcium (Lipitor) 40 mg PO QHS [facility] Last Admin: 09/21/16 22:22 Dose: 40 mg Buspirone HCl (Buspar) 15 mg PO BID [facility] Last Admin: 09/22/16 09:52 Dose: 15 mg Enoxaparin Sodium (Lovenox) 40 mg SQ DAILY [facility] Last Admin: 09/22/16 09:51 Dose: 40 mg Guaifenesin (Mucinex) 1,200 mg PO BID [facility] Last Admin: 09/22/16 09:52 Dose: 1,200 mg Hydrochlorothiazide (Hctz 12.5mg) 12.5 mg PO DAILY [facility] Last Admin: 09/22/16 09:53 Dose: 12.5 mg Hydroxyzine Pamoate (Vistaril) 50 mg PO Q6H PRN PRN Reason: ANXIETY Last Admin: 09/21/16 17:56 Dose: 50 mg Levofloxacin/Dextrose (Levaquin 750mg Ivpb) 750 mg in 150 mls @ 125 mls/hr IVPB Q24H [facility] Stop: 09/25/16 09:31 Last Admin: 09/22/16 09:50 Dose: 125 mls/hr Losartan Potassium (Losartan Potassium) 100 mg PO DAILY [facility] Last Admin: 09/22/16 09:52 Dose: 100 mg Methylprednisolone Sodium Succinate (Solu-Medrol) 60 mg IVP DAILY [facility] Last Admin: 09/22/16 09:53 Dose: 60 mg Pantoprazole Sodium (Protonix) 80 mg PO DAILYAC [facility] Last Admin: 09/22/16 07:04 Dose: 80 mg Promethazine HCl (Phenergan) 12.5 mg IVP Q6H PRN PRN Reason: NAUSEA Ranitidine HCl (Zantac) 150 mg PO BIDAC PRN PRN Reason: Abdominal Pain Trazodone HCl (Desyrel) 100 mg PO QHS [facility] Last Admin: 09/21/16 22:21 Dose: 100 mg AMI Plan - Labs Result Diagrams: 09/22/16 02:10 09/22/16 02:10
[2016-09-22] MEDS: HYDROXYZINE PAMOATE 25 MG CAPSULE PO PRN ×2 (11:59→18:46)
[2016-09-22] MEDS: ATORVASTATIN 20 MG TABLET PO SCH (22:21)
[2016-09-22] MEDS: TRAZODONE 50 MG TABLET PO SCH (22:21)
[2016-09-23] MEDS: IPRATROPIUM/ALBUTEROL (0.5MG/3MG) NEB INH SCH ×3 (05:51→13:18)
[2016-09-23] MEDS: HYDROCODONE/APAP 7.5/325MG TABLET PO PRN (06:37)
[2016-09-23] MEDS: PANTOPRAZOLE SODIUM 40 MG TABLET PO SCH (06:38)
--- NOTE | 2016-09-23 07:19 | RADIOLOGY REPORT ---
EXAM: CHEST, TWO VIEWS HISTORY: PROGRESSIVE DYSPNEA, COPD, VOMITING, SMOKING HISTORY. TECHNIQUE: Two views of the chest were obtained. Comparison: Chest x-ray 10/29/15. FINDINGS: The lungs are hyperinflated with biapical pleural thickening consistent with scarring. There is new patchy right middle lobe air space disease best seen on the lateral view. The left lung is clear. The cardiac silhouette is not enlarged. The diaphragm is flattened. Osteopenia. IMPRESSION: EMPHYSEMA WITH NEW FOCAL RIGHT MIDDLE LOBE INFILTRATE LIKELY DUE TO PNEUMONIA. RECOMMEND FOLLOW-UP AFTER APPROPRIATE THERAPY TO INSURE RESOLUTION. JOB NUMBER: [id number] [facility]
--- NOTE | 2016-09-23 07:23 | RADIOLOGY REPORT ---
EXAM: CHEST, TWO VIEWS HISTORY: ELEVATED SERUM WHITE BLOOD CELL COUNT. PNEUMONIA. TECHNIQUE: Upright PA and lateral views of the chest were obtained. Comparison: Two view chest radiographic examination dated 09/19/16. FINDINGS: The heart is not enlarged and the pulmonary vasculature is nondilated. There has been significant improvement in the right middle lobe infiltrate with near complete clearing. No new lung consolidation is seen. The lungs remain hyperinflated consistent with COPD. Minor posterior costophrenic angle blunting persists likely due to hyperinflation with pleural effusion or scarring less likely. Biapical pleural and parenchymal scarring persists. A calcified granuloma is again noted in the upper right lung. IMPRESSION: SIGNIFICANT IMPROVEMENT IN THE RIGHT MIDDLE LOBE PNEUMONIA. OTHERWISE, NO SIGNIFICANT CHANGE. J[facility]BER: [id number] [facility]
[2016-09-23] MEDS: LEVOFLOXACIN/D5W 750 MG/150 ML BAG IVPB SCH (09:29)
[2016-09-23] MEDS: BUSPIRONE 5 MG TABLET PO SCH (09:30)
[2016-09-23] MEDS: LOSARTAN POTASSIUM 100 MG TABLET PO SCH (09:31)
[2016-09-23] MEDS: HYDROCHLOROTHIAZIDE 12.5 MG CAPSULE PO SCH (09:31)
[2016-09-23] MEDS: ASPIRIN 81 MG TABEC PO SCH (09:31)
[2016-09-23] MEDS: ENOXAPARIN 40 MG/0.4 ML SYR SQ SCH (09:31)
[2016-09-23] MEDS: METHYLPREDNISOLONE PF 125MG/VIAL IVP SCH (09:32)
[2016-09-23] MEDS: GUAIFENESIN 1,200 MG TABLET PO SCH (09:32)
[2016-09-23 10:13] LABS: ANION GAP 6.7 (7-16); BLOOD UREA NITROGEN 24 mg/dL (9-20); CARBON DIOXIDE 28.3 mmol/L (22-30); CREATININE 0.7 mg/dL (0.66-1.25); EST GLOMERULAR FILTRATION RATE > 60 ml/min; GLUCOSE,RANDOM 127 mg/dL (70-110)
[2016-09-23 10:24] LABS: BASO % 0.2 % (0-6); EOS % 0.7 % (0-6); GRAN % 67.2 % (47-80); HEMATOCRIT 38.8 % (42.0-52.0); HEMOGLOBIN 12.7 gm/dl (14.0-18.0); LYMPH % 18.8 % (16-45); MEAN CELL VOLUME 94.4 fl (81-97); MEAN CORPUSCULAR HEMOGLOBIN 30.9 pg (27-33); MEAN CORPUSCULAR HGB CONC 32.7 g/dl (32-36); MONO % 13.1 % (0-9); PLATELET COUNT 322 K/uL (130-400); RED BLOOD COUNT 4.11 M/uL (4.40-5.70); WHITE BLOOD COUNT W/O DIFF 12.6 K/uL (4.2-12.2)
--- NOTE | 2016-09-23 11:31 | Discharge Summary ---
Providers Discharge Summary Date: 09/23/16 Date of admission: 09/19/16 21:50 Expected Date of Discharge: 09/23/16 Attending physician: JASE DENNY Primary care physician: LUIS YOUNG Physical Exam - Vital Signs Vital Signs: Vital Signs - Last 24 Hrs Temp Pulse Pulse Resp BP BP Pulse Ox 09/23/16 08:06 86 16 09/23/16 07:48 97.8 F 86 16 146/73 94 L 09/23/16 07:30 84 16 92 L 09/23/16 05:51 81 18 100 09/23/16 00:03 98.0 F 86 20 95/58 98 09/22/16 21:58 78 16 100 09/22/16 20:46 16 09/22/16 17:00 98.1 F 96 H 18 125/96 95 09/22/16 13:39 92 H 18 - General General Appearance: Alert, Oriented x3, Cooperative, No acute distress Limitations: No limitations - Head Head exam: Atraumatic, Normocephalic, Normal inspection - Eye Eye exam: Normal appearance, PERRL, EOMI - ENT ENT exam: Normal exam, Mucous membranes moist, Normal external ear exam, Normal orophraynx Throat exam: Normal inspection. negative: Tonsillar erythema, Tonsillar exudate - Neck Neck exam: Normal inspection, Full ROM. negative: Tenderness - Respiratory Respiratory exam: Decreased breath sounds (throughout ), Prolonged expiratory. negative: Accessory muscle use, Chest wall tenderness, Rales, Respiratory distress, Wheezes - Cardiovascular Cardiovascular Exam: Regular rate, Normal rhythm, Normal heart sounds - GI/Abdominal GI/Abdominal exam: Soft, Normal bowel sounds. negative: Tenderness - Extremities Extremities exam: Normal inspection, Full ROM, Normal capillary refill. negative: Tenderness - Neurological Neurological exam: Alert, Normal gait, Oriented X3, Reflexes normal Hospitalization - Hospitalization Admission Diagnosis: rml pneumonia, copd, vomiting - Problem List/Discharge Diagnosis (1) Pneumonia Current Visit: Yes Status: Acute Discharge Diagnosis: Pneumonia type: due to unspecified organism Laterality: right Lung location: middle lobe of lung Qualified Code(s): J18.1 - Lobar pneumonia, unspecified organism Base Code: J18.9 - PNEUMONIA, UNSPECIFIED ORGANISM Comment: 09/23/16- improving right middle lobe PNA. WBC improving. afebrile. - continue levaquin 750mg PO as outpatient - systemic steroid through 09/24, then restart inhaled budesonide - duo neb treatments Q4 hours WA - follow up with Ammy Jensen PA-C, at 720 am. - return to the ED sooner re any new or worsening symptoms (2) COPD (chronic obstructive pulmonary disease) Current Visit: Yes Status: Acute Discharge Diagnosis: COPD type: COPD with acute lower respiratory infection Qualified Code(s): J44.0 - Chronic obstructive pulmonary disease with acute lower respiratory infection Base Code: J44.9 - CHRONIC OBSTRUCTIVE PULMONARY DISEASE, UNSPECIFIED Comment : 09/23/16- Improving clinically. CXR: right middle lobe PNA improving. WBC 12. - Patient has severe emphysema with PFT's done through pulmonology office about a week ago. I do not have specific FEV1 value but pulmonology did state it was worse compared to 2016 testing. Patient did have some medication changes recently at his appointment. - Patient has one additional day of systemic steroid- 60 mg of PO steroid sent to pharmacy. - he will restart inhaled budesonide Friday. - Levaquin 750 mg PO until 09/25/16 - will continue duobneb scheduled q4H WA. - continue supplemental oxygen at 2L at all times. Will discuss order for smaller/portable oxygen compressor during patient's f/up visit. (3) Full code status Current Visit: Yes Status: Acute Base Code: Z78.9 - OTHER SPECIFIED HEALTH STATUS Comment: 09/23/16- patient remained full code - Hospitalization Course Disposition: Home, Self-Care Hospital Course: 66yo male with CC of n/v, cough and not feeling well. He has history of severe COPD emphysema with home O2 use at 2L, hypertension, anxiety, osteoporosis, pre- diabetes. Patient states over the past week he had been having some increasing shortness of breath from baseline. [place] like his chest was getting tighter and having a harder time getting a breath in. He was not having increased cough or sputum production. he had seen his Adult Probation Officer about the time this started and was started on duoneb QID along with budesonide BID. He says his symptoms continued to progress over the week and then yesterday had nausea with 3 episodes of emesis so decided to come to the ED. While in the ED, patient was febrile with temp of 101, HR of 102, and O2 sat of 96% on 2L. His WBC count was elevated at 19.1 and CXR showed new RML infiltrate along with chronic emphysematous changes. CMP showed slightly low sodium at 134 and Cl of 97. Blood cultures were obtained and he was started on azithromycin and rocephin for suspected CAP. 09/20/16- Patient states he is feeling better compared to yesterday. He says he is not feeling as short of breath but is not back to his baseline. He says his nausea has completely resolved and thinks he just ate something that didn't agree with him, because he was not having any problems prior to yesterday. He never had abdominal pain and no changes in his stool. He does continue to report some pain in the right middle chest where the infiltrate is. He denies fever, chills, weakness or fatigue. PCP: [facility] 09/23/16: pt sitting up in bed comfortably. states he's feeling a lot better. He 's off O2 and sating at 92% on RA. No CP, fever, chills, SOB, abdominal pain, dysuria, or hematuria. cough has improved. tolerating meals. normal /GI function. Procedures: Imaging and X-Rays 09/22/16 07:43 CHEST 2 VIEWS [RAD] Stat Cardiology Procedures 09/21/16 10:09 EKG NOW Abnormal Labs: Abnormal Lab Results 09/20/16 09/20/16 09/21/16 Range/Units 06:40 06:45 08:09 WBC 26.0 H* 31.9 H* (4.2-12.2) K/uL RBC 4.23 L 4.04 L (4.40-5.70) M/uL Hgb 13.0 L 12.5 L (14.0-18.0) gm/dl Hct 39.6 L 38.3 L (42.0-52.0) % MPV 11.0 H 10.6 H (7.4-10.4) fl Neutrophils % 95.0 H 90.0 H (47-80) % Lymphocytes % (16-45) % Monocytes % (0-9) % Lymphocytes 2.0 L 4.0 L (16-45) % Potassium (3.5-5.1) mmol/L Carbon Dioxide 30.4 H (22-30) mmol/L Anion Gap (7-16) BUN (9-20) mg/dL Creatinine (0.66-1.25) mg/dL Random Glucose 146 H (70-110) mg/dL 09/21/16 09/22/16 09/22/16 Range/Units 08:09 02:10 02:10 WBC 20.9 H* (4.2-12.2) K/uL RBC 3.83 L (4.40-5.70) M/uL Hgb 12.0 L (14.0-18.0) gm/dl Hct 36.4 L (42.0-52.0) % MPV 11.8 H (7.4-10.4) fl Neutrophils % 89.0 H (47-80) % Lymphocytes % 5.8 L (16-45) % Monocytes % (0-9) % Lymphocytes 4.0 L (16-45) % Potassium (3.5-5.1) mmol/L Carbon Dioxide (22-30) mmol/L Anion Gap (7-16) BUN 22 H 21 H (9-20) mg/dL Creatinine 0.6 L (0.66-1.25) mg/dL Random Glucose 120 H 115 H (70-110) mg/dL 09/23/16 09/23/16 Range/Units 09:58 09:58 WBC 12.6 H (4.2-12.2) K/uL RBC 4.11 L (4.40-5.70) M/uL Hgb 12.7 L (14.0-18.0) gm/dl Hct 38.8 L (42.0-52.0) % MPV 11.0 H (7.4-10.4) fl Neutrophils % (47-80) % Lymphocytes % (16-45) % Monocytes % 13.1 H (0-9) % Lymphocytes (16-45) % Potassium 3.4 L (3.5-5.1) mmol/L Carbon Dioxide (22-30) mmol/L Anion Gap 6.7 L (7-16) BUN 24 H (9-20) mg/dL Creatinine (0.66-1.25) mg/dL Random Glucose 127 H (70-110) mg/dL Condition at Discharge: (1) Good Discharge Medications - Discharge Medications Prescriptions: Ipratropium/Albuterol [Duoneb] 3 ml INH RESP.Q4H.[place] #180 Levofloxacin [Levaquin] 750 mg PO DAILY #2 tab Prednisone [Prednisone 20Mg] 60 mg PO DAILY #3 tab Home Medications: Ambulatory Orders Albuterol Sulfate [Proair Respiclick] 90 mcg IH ASDIR 01/17/15 [Last Taken 08/05] Aspirin [Aspirin EC] 81 mg PO DAILY 01/17/15 [Last Taken 08/06/15] Hydrocodone/Acetaminophen [Hydrocodone/Acetaminophen 7.5mg/325mg] 1 tab PO Q6HR PRN 09/19/16 [Last Taken Unknown] Trazodone HCl [Desyrel] 50 mg PO QHS 09/19/16 [Last Taken Unknown] Ipratropium/Albuterol [Duoneb] 3 ml INH RESP.Q4H.[place] #180 09/23/16 [Last Taken Unknown] Levofloxacin [Levaquin] 750 mg PO DAILY #2 tab 09/23/16 [Last Taken Unknown] Prednisone [Prednisone 20Mg] 60 mg PO DAILY #3 tab 09/23/16 [Last Taken Unknown] Discharge Plan - Discharge Instructions Activity at Discharge: Increase Activity as Tolerated Diet at Discharge: Regular Diet Additional Instructions: orange picker medications from pharmacy and take as directed. Lung medications: Levaquin (complete entire antibiotic) Prednisone 60 mg by mouth- you will need to take this 09/24 and then you'll be done with steroid. After you complete prednisone on 09/24, you'll restart your inhaled steroid ( inhaled budesonide) 09/25/16. Continue all other home medications as prescribed by Luis. Follow up with me in the office on 09/26 @ 7:20 am. Return to the hospital in the meantime re any new or worsening symptoms (i.e worsening sob, [place], CP, fever, chills, etc).
[2016-09-26] MEDS ORDERED: RISEDRONATE SODIUM 35 MG PO SCH (10:00)
== END 2016-09-23 14:21 | disposition home or self-care (01) | DRG 194 ==
LOC: ER 16:41 → MEDSURG 21:50
PROVIDERS: ADMIT Family Medicine; ATTEND Family Medicine
DX: J18.1 Lobar pneumonia, unspecified organism (principal); J44.0 Chronic obstructive pulmonary disease with (acute) lower respiratory infection; I10 Essential (primary) hypertension; M81.0 Age-related osteoporosis without current pathological fracture; R11.2 Nausea with vomiting, unspecified; Z78.9 Other specified health status
CPT/HCPCS: 71020; 80048; 80053; 84484; 85025; 85027; 93005; 93010; 94620; 94640; 94760; 94761; 96365; 96375; 99223; 99233; 99239; 99285; J1170; J1650; J1956; J2930

== ENCOUNTER 2016-10-06 01:41 | Emergency (ER) | payer OTHER, MEDICARE ==
[2016-10-06] MEDS ORDERED: PREDNISONE 20 MG TAB PO ONE (02:01)
[2016-10-06] MEDS ORDERED: IPRATROPIUM/ALBUTEROL (0.5MG/3MG) NEB INH ONE (02:01)
--- NOTE | 2016-10-06 02:06 | Emergency Department Record ---
History of Present Illness - General Chief Complaint: Shortness of breath Stated Complaint: SOB Time Seen by Provider: 10/06/16 01:54 Source: Patient Mode of Arrival: Ambulatory Limitations: No limitations - History of Present Illness Initial Comments: 66 yo male presents to ED stating that he awoke 1 hours ago with difficulty in breathing, reports using albuterol at home that did not help much however upon arriving to the ED reports that his symptoms are improving. Patient denies fevers, chills, or productive cough symptoms, however does report recent admission or COPD and pneumonia 2 weeks ago. Patient is oxygen dependent at home as well. MD Complaint: Shortness of breath Onset/Timin -: Hour(s) Consistency: Constant Improves With: Nothing Worsens With: Nothing Known History Of: COPD, Recurrent pneumonia Associated Symptoms: Cough, Sputum production Treatments Prior to Arrival: Bronchodilator - Related Data Home Oxygen Therapy: Yes Home Oxygen Amount: 2 Liters Home Medications Medication Instructions Recorded Confirmed Last Taken Albuterol Sulfate [Proair 90 mcg IH ASDIR 01/17/15 09/19/16 08/06/15 Respiclick] Aspirin [Aspirin EC] 81 mg PO DAILY 01/17/15 09/19/16 08/06/15 Hydrocodone/Acetaminophen 1 tab PO Q6HR PRN 09/19/16 09/19/16 Unknown [Hydrocodone/Acetaminophen 7.5mg/325mg] Trazodone HCl [Desyrel] 50 mg PO QHS 09/19/16 09/19/16 Unknown Previous Rx's Medication Instructions Recorded Ipratropium/Albuterol [Duoneb] 3 ml INH RESP.Q4H.[place] #180 09/23/16 Levofloxacin [Levaquin] 750 mg PO DAILY #2 tab 09/23/16 Prednisone [Prednisone 20Mg] 20 mg PO TID #12 tab 10/06/16 Allergies Allergy/AdvReac Type Severity Reaction Status Date / Time No Known Drug Allergies Allergy Verified 10/06/16 01:47 Travel Screening - Travel/Exposure Within Last 30 Days Have you traveled within the last 30 days?: No - Travel Symptoms Symptom Screening: None Review of Systems Constitutional: Denies: Chills, Fever, Malaise Eyes: Denies: Eye discharge, Eye pain ENT: Denies: Congestion, Ear pain Respiratory: Reports: Dyspnea, Wheezes. Denies: Cough Cardiovascular: Reports: Dyspnea on exertion. Denies: Chest pain, Palpitations Endocrine: Denies: Fatigue Gastrointestinal: Denies: Abdominal pain, Constipation, Diarrhea Genitourinary: Denies: Incontinence, Retention Musculoskeletal: Denies: Arthralgia, Back pain, Gout, Joint swelling Skin: Denies: Bruising, Change in color Neurological: Denies: Abnormal gait, Confusion, Headache, Seizure Psychiatric: Denies: Anxiety Hematological/Lymphatic: Denies: Anemia, Blood Clots Past Medical History - SOCIAL HISTORY Smoking Status: Former smoker - RESPIRATORY Hx Respiratory Disorders: Yes Hx COPD: Yes Comment:: emphysema; home O2 @2L n/c - CARDIOVASCULAR Hx Cardio Disorders: Yes Hx Cardiac Cath: Yes Hx Hypertension: Yes - NEURO Hx Neuro Disorders: No - GI Hx GI Disorders: No - Hx Genitourinary Disorders: Yes Hx Bladder Problem: Yes - ENDOCRINE Hx Endocrine Disorders: No - MUSCULOSKELETAL Hx Musculoskeletal Disorders: Yes - PSYCH Hx Psych Problems: No - HEMATOLOGY/ONCOLOGY Hx Hematology/Oncology Disorders: No Family Medical History Any Significant Family History?: Yes Hx Diabetes: Mother Hx Heart Disease: Mother Physical Exam - General General Appearance: Alert, Oriented x3, Cooperative, No acute distress Limitations: No limitations - Head Head exam: Atraumatic, Normocephalic, Normal inspection Head exam detail: negative: Abrasion, Contusion, Hargrove's sign, General tenderness, Hematoma, Laceration - Eye Eye exam: Normal appearance. negative: Conjunctival injection, Periorbital swelling, Periorbital tenderness, Scleral icterus - ENT Ear exam: negative: Auricular hematoma, Auricular trauma Nasal Exam: negative: Active bleeding, Discharge, Dried blood, Foreign body Mouth exam: negative: Drooling, Laceration, Muffled voice, Tongue elevation - Neck Neck exam: Normal inspection. negative: Meningismus, Tenderness - Respiratory Respiratory exam: Decreased breath sounds, Wheezes (mild bilaterally). negative : Rales, Respiratory distress, Rhonchi, Stridor - Cardiovascular Cardiovascular Exam: Regular rate, Normal rhythm, Normal heart sounds - GI/Abdominal GI/Abdominal exam: Soft. negative: Rebound, Rigid, Tenderness - Rectal Rectal exam: Deferred - exam: Deferred - Extremities Extremities exam: Normal inspection. negative: Calf tenderness, Pedal edema, Tenderness - Back Back exam: Denies: CVA tenderness (R), CVA tenderness (L) - Neurological Neurological exam: Alert, Normal gait, Oriented X3 - Psychiatric Psychiatric exam: Normal affect, Normal mood - Skin Skin exam: Normal color. negative: Abrasion Type of lesion: negative: abrasion Course - Reevaluation(s) Reevaluation #1: 10/06/16 02:05 Vitals reviewed and are stable on the patient's home oxygen level. No significant respiratory distress noted on examination. Duoneb/Prednisone and CXR ordered for treatment and evaluation. Reevaluation #2: 10/06/16 02:28 CXR: Hyperinflation, nothing acute Patient was updated on radiology results, reports further improvement following duoneb. VSS, and the patient appears stable for discharge at this time on prednisone for COPD exacerbation with return for any worsening of his symptoms. Disposition Disposition: Discharge Clinical Impression: COPD (chronic obstructive pulmonary disease) Qualifiers: COPD type: COPD with acute exacerbation Qualified Code(s): J44.1 - Chronic obstructive pulmonary disease with (acute) exacerbation Disposition: Home, Self-Care Condition: (2) Stable Instructions: COPD (Chronic Obstructive Pulmonary Disease) (ED) Additional Instructions: Return to ED if your symptoms worsen or if you have any concerns. Prednisone as directed. Follow-up with your family doctor in 1-3 days as directed. Prescriptions: Prednisone [Prednisone 20Mg] 20 mg PO TID #12 tab Forms: Patient Portal Access Time of Disposition: 02:30
--- NOTE | 2016-10-08 16:14 | RADIOLOGY REPORT ---
EXAM: CHEST 2 VIEWS HISTORY: PROGRESSIVE SHORTNESS OF BREATH FOR ONE WEEK. COPD. PRIOR SMOKER. TECHNIQUE: Two-view chest. COMPARISON: Chest x-ray, 09/22/2016. FINDINGS: Diffuse lung lucency with hyperinflation consistent with emphysema. Biapical pleural thickening consistent with scarring, unchanged. No new infiltrate. Cardiac silhouette is not enlarged. Diaphragm is flattened. Osteopenia with mild to moderate degenerative disc disease throughout the thoracic spine. Mild dextroconvex scoliosis of the thoracic spine. IMPRESSION: EMPHYSEMA WITH BIAPICAL SCARRING. NO ACUTE INTRATHORACIC PROCESS WITH NO INTERVAL CHANGE. JOB NUMBER: [id number] MTDD
== END 2016-10-06 02:40 | disposition home or self-care (01) ==
LOC: ER 01:41
DX: J44.1 Chronic obstructive pulmonary disease with (acute) exacerbation (principal); I10 Essential (primary) hypertension
CPT/HCPCS: 99283 ×2; 94760; 71020; 94640; J7512

== ENCOUNTER 2016-12-22 23:46 | Emergency (ER) | payer OTHER ==
[2016-12-22] MEDS ORDERED: IPRATROPIUM/ALBUTEROL (0.5MG/3MG) NEB INH ONE (23:51)
--- NOTE | 2016-12-23 00:10 | Emergency Department Record ---
History of Present Illness - General Chief Complaint: Shortness of breath Stated Complaint: NEBULIZER QUIT WORKING Time Seen by Provider: 12/22/16 23:51 Source: Patient Mode of Arrival: Ambulatory - History of Present Illness Initial Comments: The patient has no new illness and no new symptoms. He has COPD, is on home oxygen, and was having his routine Duoneb evening nebulizer, when the machine itself malfunctioned. He came here to have us give him the nebulizer. He denies f,c,change in his chronic cough amount, color or thickness. He denies cp , ap, st, new URI symptoms. He only wishes a nebulizer and then to return home. Onset/Timin -: Minutes(s) Consistency: Constant Improves With: Nothing Worsens With: Nothing Associated Symptoms: Denies other symptoms Treatments Prior to Arrival: None - Related Data Home Oxygen Therapy: Yes Home Oxygen Amount: 2 Liters Home Medications Medication Instructions Recorded Confirmed Last Taken Aspirin [Aspirin EC] 81 mg PO DAILY 01/17/15 12/22/16 08/06/15 Hydrocodone/Acetaminophen 1 tab PO Q6HR PRN 09/19/16 12/22/16 Unknown [Hydrocodone/Acetaminophen 7.5mg/325mg] Trazodone HCl [Desyrel] 50 mg PO QHS 09/19/16 12/22/16 Unknown Previous Rx's Medication Instructions Recorded Ipratropium/Albuterol [Duoneb] 3 ml INH RESP.Q4H.WA #180 09/23/16 Allergies Allergy/AdvReac Type Severity Reaction Status Date / Time No Known Drug Allergies Allergy Unverified 11/13/16 14:26 Travel Screening - Travel/Exposure Within Last 30 Days Have you traveled within the last 30 days?: No - Travel/Exposure Within Last Year Have you traveled outside the [place] in the last year?: No - Additonal Travel Details Have you been exposed to anyone with a communicable illness?: No - Travel Symptoms Symptom Screening: None Review of Systems Reviewed: No additional complaints except as noted below Constitutional: Reports: As per HPI. Denies: Chills, Fever, Malaise, Night sweats, Weakness, Weight change Eyes: Reports: As per HPI. Denies: Eye discharge, Eye pain, Photophobia, Vision change ENT: Reports: As per HPI. Denies: Congestion, Dental pain, Ear pain, Epistaxis , Hearing loss, Throat pain Respiratory: Reports: As per HPI. Denies: Cough, Dyspnea, Hemoptysis, Stridor, Wheezes Cardiovascular: Reports: As per HPI. Denies: Arrhythmia, Chest pain, Dyspnea on exertion, Edema, Murmurs, Orthopnea, Palpitations, Paroxysmal nocturnal dyspnea, Rheumatic Fever, Syncope Endocrine: Reports: As per HPI. Denies: Fatigue, Heat or cold intolerance, Polydipsia, Polyuria Gastrointestinal: Reports: As per HPI. Denies: Abdominal pain, Constipation, Diarrhea, Hematemesis, Hematochezia, Melena, Nausea, Vomiting Genitourinary: Reports: As per HPI. Denies: Dysuria, Frequency, Hematuria, Incontinence, Retention, Testicular pain, Testicular mass, Urgency Musculoskeletal: Reports: As per HPI. Denies: Arthralgia, Back pain, Gout, Joint swelling, Myalgia, Neck pain Skin: Reports: As per HPI. Denies: Bruising, Change in color, Change in hair/ nails, Lesions, Pruritus, Rash Neurological: Reports: As per HPI. Denies: Abnormal gait, Confusion, Headache, Numbness, Paresthesias, Seizure, Tingling, Tremors, Vertigo, Weakness Psychiatric: Reports: As per HPI. Denies: Anxiety, Auditory hallucinations, Depression, Homicidal thoughts, Suicidal thoughts, Visual hallucinations Hematological/Lymphatic: Reports: As per HPI. Denies: Anemia, Blood Clots, Easy bleeding, Easy bruising, Swollen glands Past Medical History - SOCIAL HISTORY Smoking Status: Former smoker Alcohol Use: None Drug Use: None - RESPIRATORY Hx Respiratory Disorders: Yes Hx COPD: Yes Comment:: emphysema; home O2 @2L n/c - CARDIOVASCULAR Hx Cardio Disorders: Yes Hx Cardiac Cath: Yes Hx Hypertension: Yes - NEURO Hx Neuro Disorders: No - GI Hx GI Disorders: No - Hx Genitourinary Disorders: Yes Hx Bladder Problem: Yes - ENDOCRINE Hx Endocrine Disorders: No - MUSCULOSKELETAL Hx Musculoskeletal Disorders: Yes - PSYCH Hx Psych Problems: No - HEMATOLOGY/ONCOLOGY Hx Hematology/Oncology Disorders: No Family Medical History Any Significant Family History?: No Hx Diabetes: Mother Hx Heart Disease: Mother Physical Exam - General General Appearance: Alert, Oriented x3, Cooperative, No acute distress (COPD changes of barrel chested, increased AP diameter, but normal speech, ambulation. Wearing his home oxygen per nasal cannula.) - Head Head exam: Normal inspection - Eye Eye exam: Normal appearance, PERRL Pupils: Normal accommodation - ENT ENT exam: Normal exam, Mucous membranes moist, Normal external ear exam, Normal orophraynx, TM's normal bilaterally Ear exam: Normal external inspection. negative: External canal tenderness Nasal Exam: Normal inspection. negative: Discharge, Sinus tenderness Mouth exam: Normal external inspection, Tongue normal Teeth exam: Normal inspection. negative: Dental caries Throat exam: Normal inspection. negative: Tonsillar erythema, Tonsillar exudate - Neck Neck exam: Normal inspection, Full ROM. negative: Tenderness - Respiratory Respiratory exam: Decreased breath sounds, Prolonged expiratory. negative: Accessory muscle use, Chest wall tenderness, Rales, Respiratory distress, Rhonchi, Stridor, Wheezes - Cardiovascular Cardiovascular Exam: Regular rate, Normal rhythm, Normal heart sounds - GI/Abdominal GI/Abdominal exam: Soft, Normal bowel sounds. negative: Tenderness - Rectal Rectal exam: Deferred - exam: Deferred - Extremities Extremities exam: Normal inspection, Full ROM, Normal capillary refill. negative: Calf tenderness, Pedal edema, Tenderness - Back Back exam: Reports: Normal inspection, Full ROM. Denies: Muscle spasm, Rash noted, Tenderness - Neurological Neurological exam: Alert, Normal gait, Oriented X3, Reflexes normal - Psychiatric Psychiatric exam: Normal affect, Normal mood - Skin Skin exam: Dry, Intact, Normal color, Warm Course Vital Signs 12/22/16 23:51 Temperature 97.8 F Pulse Rate 87 Respiratory 20 Rate Blood Pressure 145/92 Pulse Ox 96 - Reevaluation(s) Reevaluation #1: Ready for DC home. Will return if further problems. 12/23/16 00:09 Medical Decision Making - Management Options MDM Management: No Additional Work-up Planned Disposition Disposition: Discharge Clinical Impression: COPD (chronic obstructive pulmonary disease) Qualifiers: COPD type: unspecified COPD Qualified Code(s): J44.9 - Chronic obstructive pulmonary disease, unspecified Disposition: Home, Self-Care Condition: (1) Good Instructions: Dyspnea (ED) Additional Instructions: Home with family. Return if needed. Repair nebulizer in a.m. as needed. Continue present meds. Follow up with PCP as needed. Forms: Patient Portal Access Quality - Quality Measures Quality Measures: N/A - Blood Pressure Screening Does Patient Have Any of the Following: No Blood Pressure Classification: Hypertensive Reading Systolic Measurement: 145 Diastolic Measurement: 92 Screening for High Blood Pressure: < Pre-Hypertensive BP, F/U Documented > [ [id number]] Pre-Hypertensive Follow-up Interventions: Follow-up with rescreen every year.
== END 2016-12-23 00:17 | disposition home or self-care (01) ==
LOC: ER 23:46
DX: Z99.81 Dependence on supplemental oxygen (principal); Z87.891 Personal history of nicotine dependence
CPT/HCPCS: 94640; 99283

== ENCOUNTER 2017-06-15 18:20 | Observation (INO) | payer OTHER, MEDICARE ==
[2017-06-15] MEDS ORDERED: ASPIRIN 81 MG CHEWABLE TABLET PO ONE (18:39)
--- NOTE | 2017-06-15 18:43 | Emergency Department Record ---
History of Present Illness - General Stated Complaint: CHEST TIGHTENING,DIARRHEA,COPD Time Seen by Provider: 06/15/17 18:38 Source: Patient Mode of Arrival: Ambulatory Limitations: No limitations - History of Present Illness Initial Comments: 67 yo male presents to ED for evaluation of chest "tightness" and nausea symptoms. Patient reports that his chest symptoms are across the chest, denies fevers, chills, productive cough, or recent illness. Patient reports a history of COPD and HTN. Patient denies previous heart problems, reports undergoing a heart cath several years ago and was told "the pipes are a little gabo". Complaint: Chest pain Onset/Timin -: Days(s) Severity: Moderate Quality: Other Consistency: Intermittent Improves With: Nothing Worsens With: Nothing Known History Of: COPD Associated Symptoms: Chest pain, Nausea/vomiting - Related Data Home Oxygen Therapy: Yes Home Oxygen Amount: 2 Liters Allergies Allergy/AdvReac Type Severity Reaction Status Date / Time No Known Drug Allergies Allergy Verified 06/15/17 18:28 Travel Screening - Travel/Exposure Within Last 30 Days Have you traveled within the last 30 days?: No Review of Systems Constitutional: Denies: Chills, Fever, Malaise, Night sweats Eyes: Denies: Eye discharge, Eye pain ENT: Denies: Congestion, Ear pain Respiratory: Denies: Cough, Dyspnea Cardiovascular: Reports: Chest pain. Denies: Dyspnea on exertion, Edema, Palpitations Endocrine: Denies: Fatigue, Heat or cold intolerance Gastrointestinal: Denies: Abdominal pain, Nausea, Vomiting Genitourinary: Denies: Incontinence, Retention Musculoskeletal: Denies: Arthralgia, Back pain, Gout, Joint swelling Skin: Denies: Bruising, Change in color Neurological: Denies: Abnormal gait, Confusion, Headache, Seizure Psychiatric: Denies: Anxiety Hematological/Lymphatic: Denies: Anemia, Blood Clots Past Medical History - SOCIAL HISTORY Smoking Status: Former smoker Alcohol Use: None Drug Use: Occasional Drug Use Detail:: Marijuana - RESPIRATORY Hx Respiratory Disorders: Yes Hx COPD: Yes Comment:: emphysema; home O2 @2L n/c - CARDIOVASCULAR Hx Cardio Disorders: Yes Hx Cardiac Cath: Yes Hx Hypertension: Yes - NEURO Hx Neuro Disorders: No - GI Hx GI Disorders: No - Hx Genitourinary Disorders: Yes Hx Bladder Problem: Yes Comment:: stents in kidney - ENDOCRINE Hx Endocrine Disorders: No - MUSCULOSKELETAL Hx Musculoskeletal Disorders: Yes - PSYCH Hx Psych Problems: No - HEMATOLOGY/ONCOLOGY Hx Hematology/Oncology Disorders: No Family Medical History Any Significant Family History?: Yes Hx Diabetes: Mother Hx Heart Disease: Mother Physical Exam - General General Appearance: Alert, Oriented x3, Cooperative, Mild distress Limitations: No limitations - Head Head exam: Atraumatic, Normocephalic, Normal inspection Head exam detail: negative: Abrasion, Contusion, Hargrove's sign, General tenderness, Hematoma, Laceration - Eye Eye exam: Normal appearance. negative: Conjunctival injection, Periorbital swelling, Periorbital tenderness, Scleral icterus - ENT Ear exam: negative: Auricular hematoma, Auricular trauma Nasal Exam: negative: Active bleeding, Discharge, Dried blood, Foreign body Mouth exam: negative: Drooling, Laceration, Muffled voice, Tongue elevation - Neck Neck exam: Normal inspection. negative: Meningismus, Tenderness - Respiratory Respiratory exam: Normal lung sounds bilaterally. negative: Rales, Respiratory distress, Rhonchi, Stridor - Cardiovascular Cardiovascular Exam: Regular rate, Normal rhythm, Normal heart sounds - GI/Abdominal GI/Abdominal exam: Soft. negative: Rebound, Rigid, Tenderness - Rectal Rectal exam: Deferred - exam: Deferred - Extremities Extremities exam: Normal inspection. negative: Calf tenderness, Pedal edema, Tenderness - Back Back exam: Denies: CVA tenderness (R), CVA tenderness (L) - Neurological Neurological exam: Alert, Normal gait, Oriented X3 - Psychiatric Psychiatric exam: Normal affect, Normal mood - Skin Skin exam: Normal color. negative: Abrasion Type of lesion: negative: abrasion Course Vital Signs 06/15/17 18:28 Temperature 97.4 F L Pulse Rate 101 H Respiratory 20 Rate Blood Pressure 161/122 Pulse Ox 96 - Reevaluation(s) Reevaluation #1: 06/15/17 18:43 EKG: NSR 99 Normal axis, normal intervals No acute ST-T wave changes No change 09/21/16 Reevaluation #2: 06/15/17 19:09 Labs reviewed and are grossly unremarkable for an acute process. CXR: Hyperinflation, nothing acute. Patient reports that he is currently pain-free, will admit for further evaluation. Reevaluation #3: 06/15/17 19:17 Case was discussed with Dr. Adames, will accept admission at this time. Medical Decision Making - Lab Data Result diagrams: 06/15/17 18:35 06/15/17 18:35 Disposition Disposition: Admit Clinical Impression: Chest pain Qualifiers: Chest pain type: unspecified Qualified Code(s): R07.9 - Chest pain, unspecified Disposition: Home, Self-Care Decision to Admit: Admit from ER Decision to Admit Date: 06/15/17 Decision to Admit Time: 19:12 Condition: (2) Stable Time of Disposition: 19:12 Quality - Quality Measures Quality Measures: N/A - Blood Pressure Screening Does Patient Have Any of the Following: Active Dx of HTN Blood Pressure Classification: Hypertensive Reading Systolic Measurement: 161 Diastolic Measurement: 122 Screening for High Blood Pressure: Patient Exclusion, Hx of HTN [G9744]
[2017-06-15 18:48] LABS: BASO % 1.3 % (0-6); EOS % 4.5 % (0-6); HEMATOCRIT 42.9 % (42.0-52.0); HEMOGLOBIN 14.1 gm/dl (14.0-18.0); MEAN CELL VOLUME 94.9 fl (81-97); MEAN CORPUSCULAR HEMOGLOBIN 31.2 pg (27-33); MEAN CORPUSCULAR HGB CONC 32.9 g/dl (32-36); MEAN PLATELET VOLUME 10.3 fl (7.4-10.4); MONO % 13.2 % (0-9); PLATELET COUNT 307 K/uL (130-400); RED BLOOD COUNT 4.52 M/uL (4.40-5.70); RED CELL DISTRIBUTION WIDTH 13.6 % (11.5-14.5); WHITE BLOOD COUNT W/O DIFF 9.6 K/uL (4.2-12.2)
[2017-06-15 19:06] LABS: ALBUMIN 4.8 g/dL (4.0-5.0); ALKALINE PHOSPHATASE 91 U/L (40-129); ALT/SGPT 17 U/L (<41); AST/SGOT 18 U/L (10.0-50.0); BLOOD UREA NITROGEN 13 mg/dL (8-23)
[2017-06-15 19:07] LABS: ALB/GLOB RATIO 1.5 (1.1-1.8); CREATININE 0.7 mg/dL (0.7-1.2); EST GLOMERULAR FILTRATION RATE > 60 mL/min; GLUCOSE,RANDOM 123 mg/dL (74-109); TOTAL PROTEIN 8.1 g/dL (6.6-8.7)
[2017-06-15] MEDS ORDERED: ONDANSETRON HCL IV 4 MG/2 ML VIAL IVP ONE (19:12)
[2017-06-15] MEDS ORDERED: NITROGLYCERIN 0.4MG SL TABLET #25 BTL SL PRN (19:45)
[2017-06-15] MEDS ORDERED: LOSARTAN POTASSIUM 100 MG TABLET PO SCH (19:45)
[2017-06-15] MEDS ORDERED: ALBUTEROL SULFATE (0.083%) 2.5 MG/3 ML NEB INH PRN ×2 (19:45→20:02)
[2017-06-15] MEDS ORDERED: TRAZODONE 50 MG TABLET PO PRN ×3 (20:05→21:32)
[2017-06-15] MEDS: BUSPIRONE 5 MG TABLET PO SCH (21:22)
[2017-06-15] MEDS: IPRATROPIUM/ALBUTEROL (0.5MG/3MG) NEB INH SCH (21:39)
[2017-06-15] MEDS: HYDROCODONE/APAP 7.5/325MG TABLET PO PRN (21:59)
[2017-06-15] MEDS ORDERED: ATORVASTATIN 20 MG TABLET PO SCH (22:00)
[2017-06-16] MEDS: IPRATROPIUM/ALBUTEROL (0.5MG/3MG) NEB INH SCH ×3 (05:47→14:29)
[2017-06-16] MEDS ORDERED: PANTOPRAZOLE SODIUM 40 MG TABLET PO SCH (07:00)
--- NOTE | 2017-06-16 07:17 | RADIOLOGY REPORT ---
EXAM: CHEST, TWO VIEWS HISTORY: CHEST TIGHTNESS FOR ONE DAY. COPD. TECHNIQUE: Upright PA and lateral views of the chest were obtained. Comparison: Two view chest radiographic examination dated 03/07/17. FINDINGS: The heart remains normal in size and the pulmonary vasculature is nondilated. The aortic knob is atherosclerotic. Biapical pleural and parenchymal scarring is stable, mild to moderate in degree. A calcified granuloma is again suggested in the suprahilar right lung measuring 3 mm, stable. No new confluent air space opacity is seen nor is there new costophrenic angle blunting or pneumothorax. The lungs remain hyperinflated consistent with COPD. There are degenerative changes scattered within the visualized spine and shoulder girdles. IMPRESSION: 1. STABLE RADIOGRAPHIC APPEARANCE OF THE CHEST GIVEN DIFFERENCES IN TECHNIQUE SINCE 03/07/17. 2. EMPHYSEMA/COPD REDEMONSTRATED. 3. BIAPICAL PLEURAL AND PARENCHYMAL SCARRING REDEMONSTRATED. JOB NUMBER: [id number] MTDD
[2017-06-16] MEDS ORDERED: ONDANSETRON HCL IV 4 MG/2 ML VIAL IVP PRN (07:59)
[2017-06-16] MEDS ORDERED: FLU VAC QS 2017-18 (INPT, 6MO+) 60MCG/0.5ML IM ONE (08:00)
[2017-06-16] MEDS: HYDROCODONE/APAP 7.5/325MG TABLET PO PRN (08:02)
[2017-06-16] MEDS: BUSPIRONE 5 MG TABLET PO SCH (09:49)
[2017-06-16] MEDS ORDERED: ASPIRIN 81 MG TABEC PO SCH (10:00)
[2017-06-16] MEDS ORDERED: TRAZODONE 50 MG TABLET PO PRN (10:00)
[2017-06-16] MEDS ORDERED: LOSARTAN POTASSIUM 100 MG TABLET PO SCH (10:00)
[2017-06-16] MEDS ORDERED: HYDROCHLOROTHIAZIDE 12.5 MG CAPSULE PO SCH (10:00)
[2017-06-16] MEDS ORDERED: BUDESONIDE 0.5 MG/2 ML INH SCH (10:00)
--- NOTE | 2017-06-16 11:11 | History and Physical Report ---
DATE OF EVALUATION: 06/16/2017 DATE OF ADMISSION: 06/15/2017 CHIEF COMPLAINT: Chest heaviness, shortness of breath and cough, history of COPD, and anxiety. HISTORY OF THE PRESENT ILLNESS: This 67-year-old male came in because of slight chest tightness, which happened yesterday afternoon. He was more [id number] compared to normal, and he was more nauseated than normal. His recently had diarrhea and nausea, and he also thinks that the nausea may be related to all the medications he is taking. His had nausea and diarrhea that lasted about 4 days. Grandchildren had similar things too; however, the heaviness was present. He does not relate it to exercise. He said right now the amount of discomfort he has in his chest is the typical amount of chest discomfort he has with his COPD and his breathing. He was not doing any activity when this came on, this heaviness. He does not shovel snow or do anything outside because it bothers him. He uses home oxygen at 2 liters per minute nasal cannula. He has been on oxygen for about 2 years. He stopped smoking about 2-1/2 years ago. He was seen in the Emergency Department by Dr. Pickard and put in the hospital for serial cardiac enzymes and further evaluation. He recently had a heart cath at [facility] with Dr. Marietta wyatt who he thought it was. He was told her had some "rust in his pipes." PAST MEDICAL HISTORY: Hypertension, GERD, hypercholesterolemia, chronic low back pain, COPD, and on home oxygen. Possible coronary artery disease per heart cath of 2-1/2 years ago. PAST SURGICAL HISTORY: Appendectomy and T&A. MEDICATIONS ON ADMISSION: Trazodone 50 mg at bedtime, Actonel 35 mg weekly, omeprazole 40 mg daily, losartan 100 mg daily, DuoNeb every 4 hours while awake, [place] 7.5 three times a day for his chronic back pain, hydrochlorothiazide 12.5 daily, buspirone 15 mg b.i.d., budesonide inhalation 1 puff b.i.d., atorvastatin 40 mg at bedtime, aspirin 81 mg daily, albuterol 2.5 nebs every 4 hours p.r.n. dyspnea. Home oxygen at 2 liters per minute for the last 2 years. ALLERGIES: No known allergies. FAMILY PSYCHOSOCIAL HISTORY: His mother had diabetes. Mother had heart disease. He is a former smoker, quit in 2015. Occasional marijuana use. No alcohol use. REVIEW OF SYSTEMS: HEENT: No upper respiratory infection symptoms, cough, cold, or congestion. Cardiovascular: See Chief Complaint. He had some heaviness in his chest. Respiratory: Yhrts-ee-[id number] and has a cough, which seems to be more its baseline. He stopped smoking in 2014. Gastrointestinal: He has some nausea. No diarrhea. His had nausea and diarrhea about a week ago, and his grandchildren had similar. Genitourinary: No dysuria, hematuria, frequency, or burning on urination. Musculoskeletal: He has chronic low back pain, but he is moving around the bed nicely without any problems. Neurologic: No CVA, paralysis, or paresthesias. Endocrine: No diabetes or thyroid disease. Integument: No rash, ulcers, changes in moles, or yellow skin. PHYSICAL EXAMINATION: VITAL SIGNS: Height is 5'11". Weight is 146 pounds. Temperature is 97.9. Pulse is 88. Blood pressure 131/82. Respiratory rate is 18. He is on 2 liters of nasal cannula, and pulse ox 99%. HEENT: Pupils equal, round, and reactive to light and accommodation. Extraocular muscles intact. Throat is clear. Nose is clear. Tympanic membranes cho. NECK: Supple. No jugular venous distention. No hepatojugular reflux. No carotid bruits. Thyroid is smooth. CARDIOVASCULAR: Regular rate and rhythm without murmurs, clicks, rubs, or gallops. RESPIRATORY: Clear to auscultation and percussion, but he has decreased breath sounds. ABDOMEN: Soft, nontender, no hepatosplenomegaly. No masses or tenderness. Bowel sounds active. No bruits. EXTREMITIES: No pitting edema. No cyanosis or clubbing. Full range of motion. Peripheral pulses good. BREASTS: Normal male breasts. GENITALIA: Deferred. RECTAL: Deferred. NEUROLOGIC: Cranial nerves II-XII intact. No gross deficits. Sensation normal. Strength normal. Deep tendon reflexes equal bilaterally. Babinski is negative. MENTAL STATUS: Alert and oriented x3. IMPRESSION: 1. Chest pain, rule out angina. 2. COPD on home oxygen 2 liters per minute nasal cannula. 3. History of hypertension. 4. History of hypercholesterolemia. 5. History of GERD. 6. Chronic low back pain on narcotics, [place] 7.5 three times a day. PLAN: Serial cardiac enzymes. Cardiology consult with [facility]. His second troponin was slightly in the indeterminant range. First one was negative. MTDD
--- NOTE | 2017-06-16 15:03 | Discharge Note ---
VTE H&P Assessment - Risk for VTE Risk for VTE: No Risk Level: Very Low Risk Assessment Date: 06/16/17 Risk Assessment Time: 14:59 VTE Orders Placed or Will Be Placed: No VTE Reason for No Prophylaxis: Not Indicated Discharge Medications - Discharge Medications Home Medications: Ambulatory Orders Aspirin [Aspirin EC] 81 mg PO DAILY 01/17/15 [Last Taken 06/15/17] Discharge Note - Date Date of Discharge Note: 06/16/17 Condition: (2) Stable Additional Instructions: follow up with Deneen Hartman in one we follow up with Dr. Kimball([facility]) at [facility] for reevaluation and a cardialyte stress test would be easier to get in at [facility] as recommended by Dr. Oneill. return to ED if more chest Pain Referrals: DENEEN YOUNG PA [Primary Care Provider] - Activity at Discharge: Increase Activity as Tolerated Diet at Discharge: Low Salt Diet
--- NOTE | 2017-06-17 11:11 | Medical Records Consult ---
DATE: 06/16/2017 HISTORY OF PRESENT ILLNESS: The patient is a 67-year-old male who was admitted through the emergency department basically because of shortness of breath. There had been evidence of stomach flu within the family within the past 4 days. The patient in the past had a cardiac catheterization which was performed by Dr. Zaragoza which I had an opportunity of reviewing. That study demonstrated normal left ventricular function and some mild luminal irregularities noted throughout the coronary tree. At the time, the patient had been a smoker and since then he has not had a cigarette. He previously was going to cardiopulmonary rehab but states because of the winter weather, he has elected not to do this. Since he has been in the hospital, his first troponin was negative. The other was intermediate. On the electrocardiograms, there are no acute changes noted. The patient was seen resting comfortably in bed. PAST MEDICAL HISTORY: Hypertension, GERD, hyperlipidemia, chronic low back pain, COPD on home oxygen. PAST SURGICAL HISTORY: Appendectomy and T&A. MEDICATIONS: Medications on admission have been dutifully recorded by the admitting service. These were reviewed and agree. ALLERGIES: No known allergies. FAMILY HISTORY: Also on admitting history and physical. REVIEW OF SYSTEMS: On admitting history and physical. No need to repeat for this document. PHYSICAL EXAMINATION: GENERAL: a chronically ill appearing, 5 foot 11 inch, 146-pound male. VITAL SIGNS: His pulse was anywhere between 80-90 and his blood pressure was in the 120-130/80 range. At the time I saw him, he was not on nasal cannula but has been in the past. When he was on nasal cannula, his saturation was 99%. CARDIOVASCULAR: Clear heart sounds. Normal first and second sound, no S3, no S4. ABDOMEN: Negative. EXTREMITIES: He has no evidence of peripheral edema. PULMONARY: Expiratory wheezes, marked decrease in breath sounds. IMPRESSION: Primary diagnosis is that of chronic obstructive pulmonary disease with emphysema. The current chest pain is noncardiac in my opinion. RECOMMENDATION: The patient's last stress test was in 2014 and last visit with Dr. Mcmanus was at the similar time. I think he would benefit from an outpatient Cardiolite stress test and to follow up with Dr. Mcmanus who does not come to [place] but has frequently seen patients in [place]. I also think that patient would benefit from going back to cardiac rehab. That would be his call. ENMANUEL
--- NOTE | 2017-06-17 11:11 | Discharge Summary ---
DATE: 06/16/2017 DISCHARGE DIAGNOSES: 1. Chronic obstructive pulmonary disease. 2. Chest pain, possible angina versus chest wall pain. 3. Anxiety. 4. Hypercholesterolemia. 5. Hypertension. 6. Gastroesophageal reflux disease. 7. Chronic low back pain. 8. Hypoxia, on home oxygen at 2L/min nasal cannula. ATTENDING PHYSICIAN: Ramiro Adames DO REASON FOR HOSPITALIZATION: Chest heaviness, shortness of breath, cough, history of COPD, and anxiety. This 67-year-old male came in because of slight chest tightness which happened yesterday afternoon. He is more short of breath than usual. He is also nauseated. His recently had diarrhea and nausea and his grandchildren had that. Lasted about 3-4 days. He was evaluated in the emergency department by Dr. Pickard and admitted to the hospital for serial cardiac enzymes and serial EKGs. Cardiology consult with [facility], Dr. Oneill. SIGNIFICANT FINDINGS: Initial cardiac enzyme was negative. It creeped up into the indeterminate range 0.013. The electrolytes were normal. WBC 9600, hemoglobin 14.1. EKG shows PVCs, normal sinus rhythm, no acute abnormality. Chest x-ray showed stable radiographic appearance of chest given differences in technique since 03/07/2017, emphysema, COPD re-demonstrated, biapical, pleural, and parenchymal scarring re-demonstrated. THERAPY PROVIDED: IV fluids and cardiac monitoring. Breathing treatments of albuterol. DuoNeb every 4 hours while awake. Continue his home medications. [place] 7.5 p.r.n. for his back pain, chronic. Consultation with Dr. Oneill with [facility]. Recommended following with Dr. Zaragoza and scheduling for a Cardiolite stress test. HOSPITAL COURSE: Unremarkable. He is feeling much better. CONDITION ON DISCHARGE: Much improved. DISCHARGE INSTRUCTIONS: Follow up with Deneen Gaitan in 1-2 weeks. Follow up with Dr. Zaragoza in 102 weeks with a Cardiolite stress test outpatient. Dr. Oneill suggested the patient follow up with a Cardiolite stress test at [facility] because Dr. Zaragoza does a clinic there and it might be faster to get him in to see him there. If he gets worse discomfort in his chest, he should return to the ER for further evaluation. DISCHARGE MEDICATION: 1. Trazodone 50 mg 1-2 a day. 2. Actonel 35 mg weekly. 3. Omeprazole 40 mg daily. 4. Losartan 100 mg daily. 5. DuoNeb q.4 h. 6. [place] 7.5 t.i.d. 7. Hydrochlorothiazide 12.5 daily. 8. BuSpar 50 mg b.i.d. 9. Pulmicort 1 mg inhalation b.i.d. 10. Lipitor 40 mg at bedtime. 11. Aspirin 81 mg a day. 12. Albuterol nebs q.4 h. p.r.n. CC: Dr. Bhatia with [facility]
[2017-06-22] MEDS ORDERED: RISEDRONATE SODIUM 35 MG PO SCH (10:00)
== END 2017-06-16 15:50 | disposition home or self-care (01) ==
LOC: ER 18:20 → MEDSURG 19:42
PROVIDERS: ADMIT Emergency Medicine; ATTEND Emergency Medicine
DX: R07.89 Other chest pain (principal); J44.9 Chronic obstructive pulmonary disease, unspecified; F41.8 Other specified anxiety disorders; I10 Essential (primary) hypertension; E78.00 Pure hypercholesterolemia, unspecified; M54.5 Low back pain
CPT/HCPCS: 99285 ×2; 96374; 85025; 80053; 84484 ×2; 71046; 94640 ×3; 94761; 94667; 94760; 93005; 93010; G0378 ×2; J2405 ×2; J7613

== ENCOUNTER 2019-03-14 13:31 | Emergency (ER) | payer OTHER, MEDICARE ==
[2019-03-14] MEDS ORDERED: MORPHINE SULFATE 5 MG/ML VIAL IVP ONE (13:49)
[2019-03-14] MEDS ORDERED: METHYLPREDNISOLONE PF 125MG/VIAL IM ONE (13:49)
--- NOTE | 2019-03-14 13:52 | Emergency Department Record ---
History of Present Illness - General Chief complaint: Extremity Problem Stated complaint: L SHOULDER PAIN Time Seen by Provider: 03/14/19 13:37 Source: Patient, Family Mode of Arrival: Ambulatory Limitations: No limitations - History of Present Illness Initial comments: 68 yo male presents with a pain on the left neck to shoulder. The onset was about 2-3 months ago. It had resolved but returned one week ago. The pain is sharp, and fairly constant. He has full ROM of the shoulder with mild pain. He has pain anytime he looks to the left beyond midline. He is able to look all the way right without pain. No numbness or tingling. NO weakness. No arm swelling. The feeling is a burning sensation that is sharp. No chest pain or shortness of breath. MD Complaint: Extremity pain, Neck Pain -: Week(s) (1) Location: Left, Other (neck) -: Yes Arthralgia, Yes Myalgia Radiation: Proximal Quality: Sharp, Stabbing Consistency: Constant Improves with: Immobilization Worsens with: Other (turning the head to the left worsens the pain) Associated Symptoms: Denies other symptoms - Related Data Previous Rx's Medication Instructions Recorded Methylprednisolone [Medrol Dose 0 mg PO UD #1 tab.ds.pk 03/14/19 Pack] Allergies Allergy/AdvReac Type Severity Reaction Status Date / Time No Known Drug Allergies Allergy Verified 03/14/19 13:59 Review of Systems Constitutional: Denies: Chills, Fever, Malaise, Weakness Eyes: Denies: Eye discharge, Eye pain, Photophobia, Vision change ENT: Denies: Congestion, Throat pain Respiratory: Denies: Cough, Dyspnea, Hemoptysis, Stridor, Wheezes Cardiovascular: Reports: Chest pain. Denies: Edema, Palpitations, Syncope Endocrine: Denies: Fatigue, Polydipsia, Polyuria Gastrointestinal: Denies: Abdominal pain, Diarrhea, Nausea, Vomiting Genitourinary: Denies: Dysuria, Frequency, Hematuria Musculoskeletal: Reports: Arthralgia, Myalgia, Neck pain. Denies: Back pain Skin: Denies: Bruising, Change in color Neurological: Reports: Other (skin feels like it is burning at times, no rash). Denies: Headache, Numbness, Weakness Psychiatric: Denies: Anxiety Hematological/Lymphatic: Denies: Easy bleeding, Easy bruising Past Medical History - SOCIAL HISTORY Smoking Status: Former smoker Drug Use: Rare Drug Use Detail:: Marijuana - RESPIRATORY Hx Respiratory Disorders: Yes Hx COPD: Yes Comment:: emphysema; home O2 @2L n/c - CARDIOVASCULAR Hx Cardio Disorders: Yes Hx Cardiac Cath: Yes Hx Hypertension: Yes - NEURO Hx Neuro Disorders: No - GI Hx GI Disorders: No - Hx Genitourinary Disorders: Yes Hx Bladder Problem: Yes Comment:: stents in kidney - ENDOCRINE Hx Endocrine Disorders: No - MUSCULOSKELETAL Hx Musculoskeletal Disorders: Yes - PSYCH Hx Psych Problems: No - HEMATOLOGY/ONCOLOGY Hx Hematology/Oncology Disorders: No Family Medical History Hx Diabetes: Mother Hx Heart Disease: Mother Physical Exam - General General Appearance: Alert, Oriented x3, Cooperative, No acute distress Limitations: No limitations - Head Head exam: Atraumatic, Normal inspection - Eye Eye exam: Normal appearance, PERRL. negative: Conjunctival injection, Scleral icterus - ENT ENT exam: Normal exam, Mucous membranes moist, Normal orophraynx. negative: Mucous membranes dry Ear exam: Normal external inspection Nasal Exam: Normal inspection Mouth exam: Normal external inspection Teeth exam: Normal inspection Throat exam: Normal inspection. negative: Tonsillar erythema, Tonsillomegaly, Tonsillar exudate, R peritonsillar mass, L peritonsillar mass - Neck Neck exam: Normal inspection, Tenderness, Other (full ROM to the Tight, pain if looking past midline to the left). negative: Full ROM, Lymphadenopathy, Meningismus - Respiratory Respiratory exam: Normal lung sounds bilaterally. negative: Rhonchi, Stridor, Wheezes - Cardiovascular Cardiovascular Exam: Regular rate, Normal rhythm, Normal heart sounds Peripheral Pulses: 2+: Radial (L) - GI/Abdominal GI/Abdominal exam: Soft, Normal bowel sounds. negative: Tenderness - Rectal Rectal exam: Deferred - exam: Deferred - Extremities Extremities exam: Normal inspection, Full ROM, Other (FullROM at the shoulder, no swelling, he is tender in the upper trapezius area at the base of the neck). negative: Calf tenderness, Joint swelling, Normal capillary refill, Pedal edema, Tenderness - Back Back exam: Reports: Normal inspection, Full ROM. Denies: CVA tenderness (R), CVA tenderness (L), Muscle spasm, Paraspinal tenderness, Tenderness, Vertebral tenderness - Neurological Neurological exam: Alert, Oriented X3. negative: Motor sensory deficit - Psychiatric Psychiatric exam: Normal affect, Normal mood. negative: Agitated, Anxious - Skin Skin exam: Dry, Intact, Normal color, Warm Course - Reevaluation(s) Reevaluation #1: EKG #1: 13:43 Rate: 96 Rhythm: sinus [place]: normal Intervals: normal ST segments: normal Prior: 06/15/17 no changes 03/14/19 13:57 The examination of the patient is very consistent with musculo-skeletal etio logy. He has very reproducible pain with certain movements and positions No weakness on examination or neurologic deficits 03/14/19 15:[address] was reviewed. Grade 1 anterolisthesis C3 on 4. Multi level degenerative changes C3 of C4 on L. I recommend close follow up with PCP to consider referral, MRI further work up 03/14/19 16:54 Disposition Disposition: Discharge Clinical Impression: Cervical radiculopathy Disposition: Home, Self-Care Condition: (1) Good Instructions: Cervical Radiculopathy (ED) Additional Instructions: Review this ER visit and the tests performed with your family doctor Call your doctor for the next available follow up appointment Return to the ER for a recheck if worse, any new concerns or questions Take the prescriptions provided as directed Prescriptions: Methylprednisolone [Medrol Dose Pack] 0 mg PO UD #1 tab.ds.pk Forms: Patient Portal Access Time of Disposition: 15:19 Quality - Quality Measures Quality Measures: N/A - Blood Pressure Screening Does Patient Have Any of the Following: Active Dx of HTN Blood Pressure Classification: Pre-Hypertensive BP Reading Systolic Measurement: 127 Diastolic Measurement: 82 Screening for High Blood Pressure: Patient Exclusion, Hx of HTN [G9744] Pre-Hypertensive Follow-up Interventions: Referral to alternative/primary care provider.
[2019-03-14] MEDS ORDERED: METHYLPREDNISOLONE PF 125MG/VIAL IVP ONE (13:53)
--- NOTE | 2019-03-14 15:00 | CT SCAN REPORT ---
EXAMINATION: CT Cervical Spine without IV Contrast EXAM DATE: 03/14/2019 2:41 PM TECHNIQUE: Standard protocol cervical spine CT imaging was performed without intravenous contrast. Co johanny and sagittal images were reconstructed. INDICATION: left sided neck pain, COMPARISON: None ENCOUNTER: Not applicable FINDINGS: Grade 1 anterolisthesis of C3 on C4. No jumped or perched facets. Spinous processes are intact. The c raniocervical junction and dens interval are degenerated. No prevertebral soft tissue swelling. Lateral masses are symmetric. Multilevel facet arthritic changes are present particularly at C3-4 on the left Multilevel degenerative changes in the cervical spine. Fluid levels in the left maxillary sinus are n oted Biapical pleural scarring. IMPRESSION: No acute cervical spine fracture. Dictated by: Trevor Shah MD on 03/14/2019 2:50 PM. .
== END 2019-03-14 15:44 | disposition home or self-care (01) ==
LOC: ER 13:31
DX: M54.12 Radiculopathy, cervical region (principal); I10 Essential (primary) hypertension; J44.9 Chronic obstructive pulmonary disease, unspecified; Z87.891 Personal history of nicotine dependence; Z99.81 Dependence on supplemental oxygen
CPT/HCPCS: 72125; 93005; 93010; 96374; 96375; 99284; J2930

== ENCOUNTER 2019-05-10 17:12 | Emergency (ER) | payer OTHER, MEDICARE ==
[2019-05-10] MEDS ORDERED: 0.9 % SODIUM CHLORIDE 1,000 ML BAG IV ONE (17:24)
[2019-05-10] MEDS ORDERED: ONDANSETRON HCL IV 4 MG/2 ML VIAL IV ONE (17:24)
--- NOTE | 2019-05-10 17:32 | Emergency Department Record ---
History of Present Illness - General Chief complaint: Nausea, Vomiting, Diarrhea Stated complaint: DRY HEAVES,DIARRHEA,CANT EAT Time Seen by Provider: 05/10/19 17:18 Source: Patient Mode of Arrival: Ambulatory Limitations: No limitations - History of Present Illness Initial comments: The patient is here due to not feeling well for the last 2-3 days. He has had loose stools for a few days with nausea and then today dry heaves and inability to eat. The patient has a long hx of COPD and is on Home O2 but denies any worsening of his chronic SOB. The patient has had abdominal cramping but no fever, dysuria, back pain, CP or change in his sputum. The patient did just start a new medicine just over a week ago called Daliresp which has main side effects of nausea, vomiting, and diarrhea. MD complaint: Diarrhea, Nausea, Vomiting Onset/Timin -: Days(s) Description of Vomiting: Other Associated Abdominal Pain: No Radiation: None Consistency: Intermittent Improves with: Bowel movement Worsens with: None Associated Symptoms: Loss of appetite, Nausea/vomiting - Related Data Home Medications Medication Instructions Recorded Confirmed Last Taken Roflumilast [Daliresp] 250 mcg PO DAILY 05/10/19 05/10/19 Unknown Previous Rx's Medication Instructions Recorded Methylprednisolone [Medrol Dose 0 mg PO UD #1 tab.ds.pk 03/14/19 Pack] Ondansetron [Zofran Odt] 4 mg SL .Q4-6H PRN #12 tab.rapdis 05/10/19 Allergies Allergy/AdvReac Type Severity Reaction Status Date / Time No Known Drug Allergies Allergy Verified 03/14/19 13:59 Travel Screening - Travel/Exposure Within Last 30 Days Have you traveled within the last 30 days?: No Review of Systems Constitutional: Denies: Chills, Fever, Malaise Eyes: Denies: Eye discharge ENT: Denies: Congestion Respiratory: Reports: Dyspnea (chronic.). Denies: Cough Cardiovascular: Denies: Arrhythmia Endocrine: Reports: Fatigue Gastrointestinal: Reports: Diarrhea, Nausea, Vomiting Genitourinary: Denies: Hematuria Musculoskeletal: Denies: Arthralgia Skin: Denies: Bruising Past Medical History - SOCIAL HISTORY Smoking Status: Former smoker - RESPIRATORY Hx Respiratory Disorders: Yes Hx COPD: Yes Comment:: emphysema; home O2 @2L n/c - CARDIOVASCULAR Hx Cardio Disorders: Yes Hx Cardiac Cath: Yes Hx Hypertension: Yes - NEURO Hx Neuro Disorders: No - GI Hx GI Disorders: No - Hx Genitourinary Disorders: Yes Hx Bladder Problem: Yes Comment:: stents in kidney - ENDOCRINE Hx Endocrine Disorders: No - MUSCULOSKELETAL Hx Musculoskeletal Disorders: Yes - PSYCH Hx Psych Problems: No - HEMATOLOGY/ONCOLOGY Hx Hematology/Oncology Disorders: No Family Medical History Any Significant Family History?: Yes Hx Diabetes: Mother Hx Heart Disease: Mother Physical Exam - General General Appearance: Alert, Oriented x3, Cooperative, No acute distress - Head Head exam: Atraumatic, Normocephalic, Normal inspection - Eye Eye exam: Normal appearance, PERRL - ENT Throat exam: Normal inspection. negative: Tonsillar erythema, Tonsillar exudate - Neck Neck exam: Normal inspection, Full ROM. negative: Tenderness - Respiratory Respiratory exam: Normal lung sounds bilaterally. negative: Respiratory distress - Cardiovascular Cardiovascular Exam: Regular rate, Normal rhythm, Normal heart sounds - GI/Abdominal GI/Abdominal exam: Soft, Normal bowel sounds. negative: Distended, Guarding, Rebound, Rigid, Tenderness - Extremities Extremities exam: Normal inspection, Full ROM, Normal capillary refill. negative: Tenderness - Back Back exam: Reports: Normal inspection - Neurological Neurological exam: Alert, Normal gait. negative: Abnormal gait, Motor sensory deficit Course Vital Signs 05/10/19 17:17 Temperature 97.8 F Pulse Rate 113 H Respiratory 22 Rate Blood Pressure 159/89 Pulse Ox 97 - Reevaluation(s) Reevaluation #1: The patient is doing a lot better at this time. He denies any further nausea or vomiting and also denies any AP. On exam his abdomen is very soft and nontender in all 4 quads. I did explain to the patient the need to stop the new medicine and use Zofran for nausea. He is to see his PCP later this week for recheck and to also see his lung doctor due to stopping the new medicine. 05/10/19 18:37 Medical Decision Making - Data Complexity MDM Data: Labs Ordered and/or Reviewed - Lab Data Result diagrams: 05/10/19 17:30 05/10/19 17:30 Disposition Disposition: Discharge Clinical Impression: Gastroenteritis Disposition: Home, Self-Care Condition: (2) Stable Instructions: Acute Nausea and Vomiting (ED) Additional Instructions: Please stop your new lung medicine and please see your doctor for recheck and possibly to try a new lung medicine. Use the Zofran for nausea. Return to the ER for any pain, fever, or worsening symptoms. Prescriptions: Ondansetron [Zofran Odt] 4 mg SL .Q4-6H PRN #12 tab.rapdis PRN Reason: Nausea Forms: Patient Portal Access Time of Disposition: 18:40 Quality - Quality Measures Quality Measures: N/A - Blood Pressure Screening View Details: Yes Does Patient Have Any of the Following: No Blood Pressure Classification: Pre-Hypertensive BP Reading Systolic Measurement: 159 Diastolic Measurement: 89 Screening for High Blood Pressure: < Pre-Hypertensive BP, F/U Documented > [G8950] Pre-Hypertensive Follow-up Interventions: Referral to alternative/primary care provider.
[2019-05-10 17:40] LABS: ABSOLUTE NEUTROPHIL COUNT 3.84; BASO % 1.7 % (0-6); EOS % 5.5 % (0-6); GRAN % 58.9 % (47-80); HEMATOCRIT 44.7 % (42.0-52.0); HEMOGLOBIN 14.6 gm/dl (14.0-18.0); LYMPH % 20.1 % (16-45); MEAN CELL VOLUME 95.1 fl (81-97); MEAN CORPUSCULAR HEMOGLOBIN 31.1 pg (27-33); MEAN CORPUSCULAR HGB CONC 32.7 g/dl (32-36); MEAN PLATELET VOLUME 10.4 fl (7.4-10.4); MONO % 13.8 % (0-9); PLATELET COUNT 292 K/uL (130-400); RED CELL DISTRIBUTION WIDTH 13.1 % (11.5-14.5); WHITE BLOOD COUNT W/O DIFF 6.5 K/uL (4.2-12.2)
[2019-05-10 17:52] LABS: BLOOD UREA NITROGEN 16 mg/dL (8-23); CREATININE 0.7 mg/dL (0.7-1.2); EST GLOMERULAR FILTRATION RATE > 60 mL/min
[2019-05-10 17:53] LABS: LIPASE 11 U/L (13-60); TOTAL PROTEIN 8.1 g/dL (6.6-8.7)
[2019-05-10 17:55] LABS: GLUCOSE,RANDOM 105 mg/dL (74-109)
[2019-05-10 17:57] LABS: ALT/SGPT 16 U/L (<41)
[2019-05-10 17:58] LABS: ALBUMIN 4.9 g/dL (4.0-5.0); ALKALINE PHOSPHATASE 100 U/L (40-129); AST/SGOT 21 U/L (10.0-50.0); BILIRUBIN,DIRECT < 0.2 mg/dL (0-0.3)
[2019-05-10] MEDS ORDERED: ONDANSETRON HCL IV 4 MG/2 ML VIAL IVP ONE (17:58)
[2019-05-10 18:28] LABS: URINE APPEARANCE CLEAR; URINE BILIRUBIN NEGATIVE (NEGATIVE); URINE BLOOD NEGATIVE (NEGATIVE); URINE COLOR YELLOW; URINE GLUCOSE (UA) NEGATIVE (NEGATIVE); URINE KETONE 15 mg/dL (NEGATIVE); URINE LEUKOCYTE ESTERASE NEGATIVE (NEGATIVE); URINE NITRITE NEGATIVE (NEGATIVE); URINE PROTEIN NEGATIVE (NEGATIVE); URINE UROBILINOGEN 0.2 E.U./dL (0.20 - 1.00)
== END 2019-05-10 18:50 | disposition home or self-care (01) ==
LOC: ER 17:12
DX: K52.9 Noninfective gastroenteritis and colitis, unspecified (principal); R11.2 Nausea with vomiting, unspecified; Z99.81 Dependence on supplemental oxygen
CPT/HCPCS: 99284 ×2; 96374; 96361; 83690; 85025; 80076; 80048; 81003; J2405; J7030